=== PATIENT | female | born 1950 | race Caucasian/White ===

== ENCOUNTER 2023-11-27 10:50 | Outpatient (AMB) | payer MEDICARE, SELFPAY ==
--- NOTE | 2023-11-27 10:51 | A.OFFVIS_ITS ---
Vital Signs 3 11/27/23 10:58 Height 5 ft 4 in Weight 200 lb BMI 34.3 BP 133/62 Blood Pressure Location Rt brachial Position Sitting Intake Visit Reasons: Back pain Intake Note: Left Hip Pain Allergies morphine Adverse Reaction (Severe, Uncoded 11/27/23 10:55) Itching HPI Comments Details: Beverly is a very pleasant 72-year-old female who presents the office today for evaluation management of her left lower back pain Patient has been suffering with this pain for greater than 1 year. She is currently finishing PT which she reports has not improved her pain, at times will exacerbate her pain. Pain today is rated as a 3/10, constant and worse in the morning and during the day. Pain over left PSIS with occasional radiation to the groin and down the the buttocks Exacerbated by walking, standing, going downstairs and rising from a seated position Patient will take Tylenol and Motrin as needed for the pain. Some relief with heat pad but ultimately pain persists. Denies radiation of the pain down the lower extremity. Denies numbness, tingling, burning, stabbing or electrical pain down the leg Denies red flag symptoms including new loss of bowel, bladder or saddle anesthesia. In terms of muscle damage condition is described as dull, throbbing. Pain is negatively impacting patient's general activity, recreational activities, sleep and walking. Denies current use of anticoagulants Denies current use of alcohol, nicotine, tobacco or illicit substances Denies implantable devices, pacemaker defibrillator [facility] Medical History (Updated 11/27/23 @ 11:59 by Rona Mireles APRN, PROGRAM MANAGEMENT PROFESSIONAL) Migraine Enteropathic arthritis GERD (gastroesophageal reflux disease) Hypertension Diabetes mellitus type 2, noninsulin dependent Colon polyps Colitis Social History (Updated 11/27/23 @ 10:57 by Serenity Spicer Hiro) Patient Tobacco Use Status: Never used Tobacco Review of Systems Const All systems reviewed & are unremarkable except as noted in HPI and below Physical Exam Vital Signs: Last Vital Signs BP 133/62 11/27/23 10:58 BMI result Body Mass Index 34.3 General: awake, alert, oriented. Answers questions appropriately. Fully engaged in examination. Skin: warm, dry, intact HEENT: Normocephalic. Hearing intact. Cardiac: External chest normal in appearance. Respiratory: No cough, audible wheezing or stridor. Abdomen: without gross distension. MS: No obvious swelling or deformities. Able to stand on bilateral tiptoes and bilateral heels.? Able to transition from sit to stand unassisted. Ambulates with bilaterally normal heel strike and toe off Tenderness to palpation over left PSIS Gaenslen positive on the left Thigh thrust positive on the left SI compression positive on the left DANIEL positive on the left SLR negative bilaterally Neurological: Oriented to person, place, time and situation. Thought process intact. No gait abnormalities appreciated. Psychiatric: Appropriate mood and affect. Good judgment and insight. Results Reviewed Results Reviewed: Assessment & Plan Assessment & Plan (1) Sacroiliac joint dysfunction of left side: Code(s): M53.3 - Sacrococcygeal disorders, not elsewhere classified Category: Medical Plan Beverly is a very pleasant 72 year old female who presented to the office today for evaluation and management of her chronic lower back pain. History, physical exam and provocative testing consistent with left sacroiliac joint dysfunction. Patient has exhausted conservative therapy including PT, home exercise program, ltpw-psj-wnkslbz medications, nonsteroidal anti-inflammatory medications and heat all without improvement of her symptoms. SI belt given to patient today with instructions for use. Lengthy discussion with patient regarding diagnosis and treatment options. Will schedule for fluoroscopy guided left diagnostic sacroiliac joint injection with local anesthetic. All questions and concerns were answered, patient agrees with the plan. Follow-up after injection, sooner if needed Coding Level of Care Code New Pt Level 4 (25979) Diagnoses Sacroiliac joint dysfunction of left side M53.3
[2023-11-27 10:58] VITALS: BP 133/62; BMI 34.3
== END 2023-11-27 11:46 | disposition home or self-care (01) ==
PROVIDERS: PCP Internal Medicine; Referring Provider Internal Medicine; Visit Provider Registered Nurse Emergency
DX: M53.3 Sacrococcygeal disorders, not elsewhere classified (principal)
CPT/HCPCS: 99204

== ENCOUNTER → 2023-11-27 10:50 | Outpatient (BNVA) | payer MEDICARE, SELFPAY | PROVIDERS: PCP Internal Medicine; Referring Provider Internal Medicine; Visit Provider Registered Nurse Emergency | DX: M53.3 Sacrococcygeal disorders, not elsewhere classified (principal) | CPT/HCPCS: 99202 ==

== ENCOUNTER 2024-01-05 07:19 | Outpatient (REF) | payer MEDICARE, SELFPAY ==
--- NOTE | ~2024-01-05 | FL_ITS ---
EXAMINATION: XR FLUOROSCOPY WITH IMAGES CLINICAL INFORMATION: Sacrococcygeal disorders, not elsewhere classified. Left SI joint injection. COMPARISON: None available. TECHNIQUE: Fluoroscopy provided to: Dr. Lane Fluoroscopy time: 0.0 minutes DAP: 0.0176 mGycm2 Images: 1 FINDINGS: Solitary PA image left SI joint shows needle within the superior synovial SI joint, with subsequent contrast injection. FL/FL guidance in treatment room IMPRESSION: Fluoroscopic guidance. Please refer to the full operative report for details. Electronically signed by: Pedro Caro MD 03/03/2024 09:01 AM EDT
== END 2024-01-05 07:20 | disposition home or self-care (01) ==
LOC: CF 07:19
PROVIDERS: Visit Provider Anesthesiology
DX: M53.3 Sacrococcygeal disorders, not elsewhere classified (principal); Z53.8 Procedure and treatment not carried out for other reasons
CPT/HCPCS: J2795; Q9967

== ENCOUNTER 2024-01-08 10:56 | Outpatient (AMB) | payer MEDICARE, SELFPAY ==
--- NOTE | 2024-01-08 11:08 | A.OFFVIS_ITS ---
Vital Signs 3 01/08/24 11:12 Height 5 ft 4 in BMI Reason not done Patient refused/unable BP 131/60 Blood Pressure Location Lt brachial Position Sitting Pulse 79 Pulse Source Pulse Oximeter Pulse Oximetry (%) 98 Oxygen Delivery Method Room Air Intake Visit Reasons: L diagnostic SIJ injection Intake Note: Pain today .10/15 Master Black Belt Required: No Accompanied by: Spouse Allergies morphine Allergy (Unknown, Verified 01/08/24 11:11) Itching HPI Comments Details: Patient presents back to the office today for follow-up, 2 days status post diagnostic left sacroiliac joint injection Endorses 95% pain relief with improvement in functional mobility since the injection. Denies any untoward effects. Would like to proceed with therapeutic injection Leaving for vacation in [facility] in February, is hoping to get this scheduled before the trip. Prior: Beverly is a very pleasant 72-year-old female who presents the office today for evaluation management of her left lower back pain Patient has been suffering with this pain for greater than 1 year. She is currently finishing PT which she reports has not improved her pain, at times will exacerbate her pain. Pain today is rated as a 3/10, constant and worse in the morning and during the day. Pain over left PSIS with occasional radiation to the groin and down the the buttocks Exacerbated by walking, standing, going downstairs and rising from a seated position Patient will take Tylenol and Motrin as needed for the pain. Some relief with heat pad but ultimately pain persists. Denies radiation of the pain down the lower extremity. Denies numbness, tingling, burning, stabbing or electrical pain down the leg Denies red flag symptoms including new loss of bowel, bladder or saddle anesthesia. In terms of muscle damage condition is described as dull, throbbing. Pain is negatively impacting patient's general activity, recreational activities, sleep and walking. Denies current use of anticoagulants Denies current use of alcohol, nicotine, tobacco or illicit substances Denies implantable devices, pacemaker defibrillator [facility] Medical History (Updated 11/27/23 @ 11:59 by Rona Mireles APRN, VICE PRESIDENT RESIDENTIAL [employer] SALES) Migraine Enteropathic arthritis GERD (gastroesophageal reflux disease) Hypertension Diabetes mellitus type 2, noninsulin dependent Colon polyps Colitis Social History (Updated 11/27/23 @ 10:57 by Serenity Spicer Hiro) Patient Tobacco Use Status: Never used Tobacco Review of Systems Const All systems reviewed & are unremarkable except as noted in HPI and below Physical Exam Vital Signs: Last Vital Signs Pulse 79 01/08/24 11:12 BP 131/60 01/08/24 11:12 Pulse Ox 98 01/08/24 11:12 Oxygen Delivery Method Room Air 01/08/24 11:12 General: awake, alert, oriented. Answers questions appropriately. Fully engaged in examination. Skin: warm, dry, intact HEENT: Normocephalic. Hearing intact. Cardiac: External chest normal in appearance. Respiratory: No cough, audible wheezing or stridor. Abdomen: without gross distension. MS: No obvious swelling or deformities. Neurological: Oriented to person, place, time and situation. Thought process intact. No gait abnormalities appreciated. Psychiatric: Appropriate mood and affect. Good judgment and insight. Results Reviewed Results Reviewed: Assessment & Plan Assessment & Plan (1) Sacroiliac joint dysfunction of left side: Code(s): M53.3 - Sacrococcygeal disorders, not elsewhere classified Category: Medical Plan Jeb presents back to the office today for follow-up, 2 days status post left diagnostic sacroiliac joint injection Endorses 95% pain relief with improvement in functional mobility since the injection. Discussed options for treatment, she would like to proceed with fluoroscopy guided left therapeutic sacroiliac joint injection with local anesthetic. Patient has exhausted conservative therapy including PT, home exercise program, znor-oda-pjsnksx medications, nonsteroidal anti-inflammatory medications and heat all without improvement of her symptoms. Continue with SI belt as needed All questions and concerns were answered, patient agrees with the plan. Follow-up after injection, sooner if needed Coding Level of Care Code Est Pt Level 3 (27280) Diagnoses Sacroiliac joint dysfunction of left side M53.3
[2024-01-08 11:12] VITALS: BP 131/60; PULSE 79; O2SAT 98
== END 2024-01-08 11:46 | disposition home or self-care (01) ==
PROVIDERS: PCP Internal Medicine; Visit Provider Registered Nurse Emergency
DX: M53.3 Sacrococcygeal disorders, not elsewhere classified (principal)
CPT/HCPCS: 99213

== ENCOUNTER → 2024-01-08 10:56 | Outpatient (BNVA) | payer MEDICARE, SELFPAY | PROVIDERS: PCP Internal Medicine; Visit Provider Registered Nurse Emergency | DX: M53.3 Sacrococcygeal disorders, not elsewhere classified (principal) | CPT/HCPCS: 99212 ==

== ENCOUNTER 2024-03-22 06:18 | Outpatient (REF) | payer MEDICARE, SELFPAY | END 2024-03-22 06:19 | disposition home or self-care (01) | LOC: CF 06:18 | PROVIDERS: Visit Provider Anesthesiology | DX: M53.3 Sacrococcygeal disorders, not elsewhere classified (principal) | CPT/HCPCS: 27096; J2003; J2795; J3301; Q9967 ==

== ENCOUNTER 2024-03-22 09:21 | Outpatient (AMB) | payer MEDICARE, SELFPAY ==
--- NOTE | 2024-03-22 09:42 | A.OFFVIS_ITS ---
Vital Signs 03/22/24 10:28 03/22/24 10:29 Height 5 ft 4 in 5 ft 4 in Weight 200 lb 200 lb BMI 34.3 34.3 BP 117/53 L 127/68 Blood Pressure Location Lt brachial Lt brachial Position Sitting Sitting Respiration 16 16 Pulse 73 75 Pulse Source Pulse Oximeter Pulse Oximeter Pulse Oximetry (%) 96 98 Oxygen Delivery Method Room Air Room Air Comment pre-op post-op Intake Visit Reasons: LEFT THERAPEUTIC SIJ INJECTION Allergies morphine Allergy (Unknown, Verified 03/22/24 10:30) Itching [facility] Medical History (Updated 11/27/23 @ 11:59 by Rona Mireles APRN, KITCHEN BATH DESIGNER) Migraine Enteropathic arthritis GERD (gastroesophageal reflux disease) Hypertension Diabetes mellitus type 2, noninsulin dependent Colon polyps Colitis Social History (Updated 11/27/23 @ 10:57 by Serenity Spicer [facility]) Patient Tobacco Use Status: Never used Tobacco Physical Exam Vital Signs: Last Vital Signs Pulse 75 03/22/24 10:29 Resp 16 03/22/24 10:29 BP 127/68 03/22/24 10:29 Pulse Ox 98 03/22/24 10:29 Oxygen Delivery Method Room Air 03/22/24 10:29 BMI result Body Mass Index 34.3 Assessment & Plan Assessment & Plan (1) Sacroiliac joint dysfunction of left side: Code(s): M53.3 - Sacrococcygeal disorders, not elsewhere classified Category: Medical Plan: Left therapeutic sacroiliac joint injection Informed consent was explained thoroughly to the patient.? All questions about benefits and risks for the procedure were answered. Patient came to the operating room and was positioned prone on the operating table with the pillow under the abdomen. The lower back and buttocks of the patient were prepped with ChloraPrep prepped and draped with sterile utility towels.? Sterilely draped C-arm was brought over the operating field and sq picture of patient's pelvis was demonstrated on the screen.? For the left joint tilting C-arm contralateral to the site of the joint the most posterior portion of the joints was superimposed with anterior silhouette of the joint.? Skin was injected in the projection of the joint slightly medial to the location of the joint with 25 gauge 1/2 inch needle using local lidocaine 2% . After that 22 gauge 3 and 1/2 inch needle was driven to the left joint in tunnel vision fashion.? When needle entered the joint capsule injection of the contrast was performed demonstrating intra-articular and minimally periarticular spread of the contrast.? After that 4 cc. of ropivacaine 0.5% mixed with Kenalog 40 mg was injected in the joint. After that needle was removed sterile Band-Aid was applied. The patient tolerated the procedure well. She was taken outside of the operating room to recovery room where she recovered uneventfully. Plan Jeb presents back to the office today for follow-up, 2 days status post left diagnostic sacroiliac joint injection Endorses 95% pain relief with improvement in functional mobility since the injection. Discussed options for treatment, she would like to proceed with fluoroscopy guided left therapeutic sacroiliac joint injection with local anesthetic. Patient has exhausted conservative therapy including PT, home exercise program, esio-syx-gvjqacc medications, nonsteroidal anti-inflammatory medications and heat all without improvement of her symptoms. Continue with SI belt as needed All questions and concerns were answered, patient agrees with the plan. Follow-up after injection, sooner if needed Orders: Orders FL guidance in treatment room Today M53.3 - Sacrococcygeal disorders, not elsewhere classified Coding Level of Care Code Procedure Only Diagnoses Sacroiliac joint dysfunction of left side M53.3
[2024-03-22 10:28] VITALS: BP 117/53; PULSE 73; RESP 16; O2SAT 96; BMI 34.3
[2024-03-22 10:29] VITALS: BP 127/68; PULSE 75; RESP 16; O2SAT 98; BMI 34.3
== END 2024-03-22 10:27 | disposition home or self-care (01) ==
LOC: HO.PMCPRC 09:21
PROVIDERS: PCP Internal Medicine; Visit Provider Anesthesiology
DX: M53.3 Sacrococcygeal disorders, not elsewhere classified (principal)
CPT/HCPCS: 27096

== ENCOUNTER 2024-04-20 11:02 | Outpatient (AMB) | payer MEDICARE, SELFPAY ==
[2024-04-20 11:06] VITALS: BP 150/66; PULSE 82; O2SAT 99; BMI 32.6
--- NOTE | 2024-04-20 11:06 | A.OFFVIS_ITS ---
Vital Signs 3 04/20/24 11:06 Height 5 ft 4 in Weight 190 lb BMI 32.6 BP 150/66 H Blood Pressure Location Lt brachial Position Sitting Pulse 82 Pulse Source Pulse Oximeter Pulse Oximetry (%) 99 Oxygen Delivery Method Room Air Intake Visit Reasons: LEFT THERAPEUTIC SIJ INJECTION Allergies morphine Allergy (Unknown, Verified 04/20/24 11:07) Itching Medication List - Last Reconciled 04/20/24 by Samra Davalos folic acid 1 mg PO DAILY mesalamine 800 mg PO TID metformin ER 500 mg PO DAILY methotrexate sodium mg PO metoprolol succinate ER 100 mg PO DAILY mirabegron ER (Myrbetriq) 50 mg PO DAILY omeprazole 20 mg PO DAILY triamterene-hydrochlorothiazid 37.5-25 mg 1 tab PO DAILY HPI Comments Details: Patient presents back to the office today for follow-up, 1 month status post left therapeutic sacroiliac joint injection She reports greater than 90% pain relief with improvement in functional mobility since the injection Denies any untoward effects. Reports improvement in the referred pain and is able to go on longer walks and do more activity without pain increase Prior: Patient presents back to the office today for follow-up, 2 days status post diagnostic left sacroiliac joint injection Endorses 95% pain relief with improvement in functional mobility since the injection. Denies any untoward effects. Would like to proceed with therapeutic injection Leaving for vacation in [place] in February, is hoping to get this scheduled before the trip. Prior: Beverly is a very pleasant 72-year-old female who presents the office today for evaluation management of her left lower back pain Patient has been suffering with this pain for greater than 1 year. She is currently finishing PT which she reports has not improved her pain, at times will exacerbate her pain. Pain today is rated as a 3/10, constant and worse in the morning and during the day. Pain over left PSIS with occasional radiation to the groin and down the the buttocks Exacerbated by walking, standing, going downstairs and rising from a seated position Patient will take Tylenol and Motrin as needed for the pain. Some relief with heat pad but ultimately pain persists. Denies radiation of the pain down the lower extremity. Denies numbness, tingling, burning, stabbing or electrical pain down the leg Denies red flag symptoms including new loss of bowel, bladder or saddle anesthesia. In terms of muscle damage condition is described as dull, throbbing. Pain is negatively impacting patient's general activity, recreational activities, sleep and walking. Denies current use of anticoagulants Denies current use of alcohol, nicotine, tobacco or illicit substances Denies implantable devices, pacemaker defibrillator [facility] Medical History (Updated 11/27/23 @ 11:59 by Rona Mireles APRN, CLINICAL REVIEW SPECIALIST) Migraine Enteropathic arthritis GERD (gastroesophageal reflux disease) Hypertension Diabetes mellitus type 2, noninsulin dependent Colon polyps Colitis Social History (Updated 11/27/23 @ 10:57 by Serenity Spicer Hiro) Patient Tobacco Use Status: Never used Tobacco Review of Systems Const All systems reviewed & are unremarkable except as noted in HPI and below Physical Exam Vital Signs: Last Vital Signs Pulse 82 04/20/24 11:06 BP 150/66 H 04/20/24 11:06 Pulse Ox 99 04/20/24 11:06 Oxygen Delivery Method Room Air 04/20/24 11:06 BMI result Body Mass Index 32.6 General: awake, alert, oriented. Answers questions appropriately. Fully engaged in examination. Skin: warm, dry, intact HEENT: Normocephalic. Hearing intact. Cardiac: External chest normal in appearance. Respiratory: No cough, audible wheezing or stridor. Abdomen: without gross distension. MS: No obvious swelling or deformities. Neurological: Oriented to person, place, time and situation. Thought process intact. No gait abnormalities appreciated. Psychiatric: Appropriate mood and affect. Good judgment and insight. Results Reviewed Results Reviewed: Assessment & Plan Assessment & Plan (1) Sacroiliac joint dysfunction of left side: Code(s): M53.3 - Sacrococcygeal disorders, not elsewhere classified Category: Medical Plan Patient presents back to the office today for follow-up, 1 month status post left therapeutic sacroiliac joint injection Reports greater than 90% pain relief with improvement in function and mobility since the injection. Patient has exhausted conservative therapy including PT, home exercise program, ffpf-tqw-evygvyy medications, nonsteroidal anti-inflammatory medications and heat all without improvement of her symptoms. Continue with SI belt as needed All questions and concerns were answered, patient agrees with the plan. Follow- up when pain returns, sooner if needed Coding Level of Care Code Est Pt Level 3 (40478) Complex EM visit Add On G2211 Diagnoses Sacroiliac joint dysfunction of left side M53.3
== END 2024-04-20 11:35 | disposition home or self-care (01) ==
PROVIDERS: PCP Internal Medicine; Visit Provider Registered Nurse Emergency
DX: M53.3 Sacrococcygeal disorders, not elsewhere classified (principal)
CPT/HCPCS: 99213; G2211

== ENCOUNTER → 2024-04-20 11:02 | Outpatient (BNVA) | payer MEDICARE, SELFPAY | PROVIDERS: PCP Internal Medicine; Visit Provider Registered Nurse Emergency | DX: M53.3 Sacrococcygeal disorders, not elsewhere classified (principal) | CPT/HCPCS: 99212 ==

== ENCOUNTER 2024-12-21 13:11 | Outpatient (AMB) | payer MEDICARE, SELFPAY ==
--- NOTE | 2024-12-21 13:14 | A.OFFVIS_ITS ---
Vital Signs 3 12/21/24 13:15 Height 5 ft 4 in Weight 174 lb BMI 29.9 BP 124/60 Blood Pressure Location Rt brachial Position Sitting Respiration 16 Pulse 76 Pulse Source Pulse Oximeter Pulse Oximetry (%) 93 Oxygen Delivery Method Room Air Intake Visit Reasons: Follow Up/Discuss Inj. Client Program Manager Required: No Accompanied by: Self / Same As Patient Allergies morphine Allergy (Unknown, Verified 12/21/24 13:17) Itching HPI Comments Details: The patient is a 74-year-old female presenting with recurrence of left sacroiliac joint pain. The pain was initially managed with a left sacroiliac joint injection performed in March 2024, which provided relief for approximately nine months. The pain has gradually returned over the past month, with a current intensity of 3/10. The pain is localized to the left sacroiliac joint and radiates down into the thigh, without involvement of the groin. The patient has been managing the pain with irwe-buz-vgzmmjj medications such as ibuprofen and Tylenol, although she tries to minimize their use. Physical activities such as gardening and stretching can exacerbate the pain, while rest provides some relief. - Onset: Pain recurred approximately one month ago after nine months of relief. - Quality: Described as a 3/10 in intensity. - Location: Localized to the left sacroiliac joint, radiating into the thigh. - Exacerbating factors: Gardening, stretching, and physical activity. - Relieving factors: Rest and minimizing physical activity. - Affect: Pain impacts physical activities such as gardening. - Analgesia: Current pain level is 3/10, managed with ibuprofen and Tylenol. - Adverse Effects: None reported from current medications. - Activities of Daily Living: Pain interferes with gardening and stretching activities. - Aberrant Drug Related Behaviors: None reported. [facility] Medical History (Updated 11/27/23 @ 11:59 by Rona Mireles APRN, MANAGER LINE) Migraine Enteropathic arthritis GERD (gastroesophageal reflux disease) Hypertension Diabetes mellitus type 2, noninsulin dependent Colon polyps Colitis Social History (Updated 11/27/23 @ 10:57 by Serenity Spicer Hiro) Patient Tobacco Use Status: Never used Tobacco Review of Systems Const Details: - Musculoskeletal: Reports left sacroiliac joint pain radiating to the thigh. Denies groin pain. Physical Exam Vital Signs: Last Vital Signs Pulse 76 12/21/24 13:15 Resp 16 12/21/24 13:15 BP 124/60 12/21/24 13:15 Pulse Ox 93 12/21/24 13:15 Oxygen Delivery Method Room Air 12/21/24 13:15 BMI result Body Mass Index 29.9 General: awake, alert, oriented. Answers questions appropriately. Fully engaged in examination. Skin: warm, dry, intact HEENT: Normocephalic. Hearing intact. Cardiac: External chest normal in appearance. Respiratory: No cough, audible wheezing or stridor. Abdomen: without gross distension. MS: No obvious swelling or deformities. Able to stand on bilateral tiptoes and bilateral heels.? Able to transition from sit to stand unassisted. Ambulates with bilaterally normal heel strike and toe off Left SI today: Tenderness to palpation over left PSIS. Gaenslen positive on the left. Thigh thrust positive on the left. SI compression positive on the left SLR negative bilaterally Neurological: Oriented to person, place, time and situation. Thought process intact. No gait abnormalities appreciated. Psychiatric: Appropriate mood and affect. Good judgment and insight. Results Reviewed Results Reviewed: Assessment & Plan Assessment & Plan (1) Sacroiliac joint dysfunction of left side: Code(s): M53.3 - Sacrococcygeal disorders, not elsewhere classified Category: Medical Plan The plan is to repeat the left sacroiliac joint injection, as the previous injection provided relief for nine months. The patient will continue using vyfe-whc-btbtloz medications like ibuprofen and Tylenol as needed for pain management. Insurance approval will be sought for the procedure, and once obtained, the patient will be scheduled for the injection. Patient has exhausted conservative therapy including PT, home exercise program, lmce-iqr-qpffzdh medications, nonsteroidal anti-inflammatory medications and heat all without improvement of her symptoms. Continue with SI belt as needed Patient was informed and verbally consented to the use of an ambient scribe for clinic note documentation during this visit. Patient Instructions: - Continue using ibuprofen and Tylenol as needed for pain relief. - Await a call for scheduling the injection once insurance approval is obtained. Coding Level of Care Code Est Pt Level 3 (62257) Complex EM visit Add On G2211 Diagnoses Sacroiliac joint dysfunction of left side M53.3
[2024-12-21 13:15] VITALS: BP 124/60; PULSE 76; RESP 16; O2SAT 93; BMI 29.9
--- OUTSIDE RECORDS SUMMARY | 2024-12-21 14:01 | XMS_ITS | Clinical Summary ---
Author Organization [facility] Address [address] [place] [phone] Phone Care Team Providers [employer] Sales Executive Name Role Phone Suraj Santiago MD Primary Care Provider [phone] Allergies Active Allergy Reactions Criticality Noted Date Comments Morphine Hives 06/17/2012 morphine sulfate face Medications albuterol HFA (PROAIR HFA ; PROVENTIL HFA ; VENTOLIN HFA) 90 mcg/actuation inhaler Inhale 2 puffs by mouth every 6 hours as needed. Active atorvastatin (LIPITOR) 10 mg tablet Take 1 tablet (10 mg total) by mouth at bedtime. Active erythromycin 5 mg/gram (0.5 %) ophthalmic ointment APPLY 1 A SMALL AMOUNT INTO BOTH EYES THREE TIMES A DAY DIRECTED 5 Active folic acid (FOLVITE) 1 mg tablet TAKE 1 TABLET BY MOUTH DAILY. EXCEPT THE DAY YOU TAKE YOUR METHOTREXATE 5 Active mesalamine (ASACOL HD) [address] tablet Take 3 tablets (2,400 mg total) by mouth 1 (one) time each day. 3 Active methotrexate 2.5 mg tablet TAKE 8 TABLETS (20 MG TOTAL) BY MOUTH ONCE A WEEK. 5 Active metoprolol succinate (TOPROL-XL) 100 mg 24 hr tablet Take 1 tablet (100 mg total) by mouth 1 (one) time each day. Active metroNIDAZOLE (METROGEL) 1 % gel Apply topically 2 times daily. 4 Active omeprazole (PriLOSEC) [address] capsule Take by mouth daily. 2 Active Ozempic 1 mg/dose (4 mg/3 mL) injection pen INJECT 1 MG SUBCUTANEOUSLY ONCE A WEEK Active triamterene-hy droCHLOROthiaz dee (MAXZIDE-25) 37.5-25 mg per tablet Take 1 tablet by mouth 1 (one) time each day. 2 Active Gemtesa 75 mg tablet tablet 5 Active estradioL (ESTRACE) 0.01 % (0.1 mg/gram) vaginal cream Insert 0.5 g into the vagina 1 (one) time each day. Please place 0.5g (a pea-sized amount) on your finger and place inside the vagina for 2 weeks at night, and then twice a week at night 42.5 g 3 5 Active Encounters Date Type Department Care Team Description 11/29/2024 11:00 AM EDT Office Visit Urogynecology [address] [phone] Shannon Reeves MD Prolapse of anterior vaginal wall (Primary Dx); Nocturia; Urgency incontinence; Prolapse of posterior vaginal wall from Last 3 Months Surgical History Surgery Date Site/Laterality Comments LAPAROSCOPIC HYSTERECTOMY 06/08/2009 - 06/07/2010 SUPRACERVICAL TUBAL LIGATION 06/08/1980 - 06/07/1981 BLADDER SUSPENSION 06/08/1996 - 06/07/1997 Dr. Alejandro Medical History Medical History Date Comments Diabetes ([facility] V24, [facility] V28) Hypertension Hyperlipidemia Enteropathic arthritis Rheumatoid arthritis ([facility] V24, [facility] V28) Family History Medical History Relation Name Comments Kidney cancer Father Breast cancer Neg Hx Colon cancer Neg Hx Ovarian cancer Neg Hx Uterine cancer Neg Hx Relation Name Status Comments Father Social History Tobacco Use Types Packs/Day Years Used Date Smoking Tobacco: Never Smokeless Tobacco: Never Tobacco Cessation:Counseling Given: Not Answered Alcohol Use Standard Drinks/Week Comments Not Currently 0 (1 standard drink = 0.6 oz pur e alcohol) Comments Unknown Sex and Gender Information Value Date Recorded Sex Assigned at Not on file Legal Sex Female 7:37 PM EST Gender Identity Not on file Sexual Orientation Not on file Obstetrics History Para Term AB IAB SAB Ectopic Multiple Livin g Live Births 4 4 4 0 0 0 0 0 0 4 4 Date Outcome GA Total Labor Labor/2nd/3rd Weight Sex Type Anes PTL Mahsa A1 A5 Name Clin Term Term Term Term Last Filed Vital Signs Vital Sign Reading Time Taken Comments Blood Pressure 122/65 11/29/2024 10:47 AM EDT Pulse 79 11/29/2024 10:47 AM EDT Temperature - - Respiratory Rate - - Oxygen Saturation - - Inhaled Oxygen Concentration - - Weight 82.1 kg (181 lb) 11/29/2024 10:47 AM EDT Height 162.6 cm (5' 4 ) 11/29/2024 10:47 AM EDT Body Mass Index 31.07 11/29/2024 10:47 AM EDT Plan of Treatment Health Maintenance Due Date Last Done Comments Diabetes: Annual Foot Exam 1960 Diabetes: Annual Retina Eye Exam 1960 DTaP,Tdap,and Td Vaccines (1 - Tdap) 12/11/1967 Pneumococcal Vaccine: 50+ Years (1 of 1 - PCV) 1998 IPV Vaccines (2 of 3 - Adult catch-up series) 03/23/2000 02/24/2000 Zoster Vaccines (2 of 2) 03/08/2019 01/11/2019 Cholesterol Screening (Lipid Panel) 10/26/2024 Depression Screening 10/26/2024 Falls Risk Assessment 10/26/2024 Hepatitis C Screening 10/26/2024 Osteoporosis Screening (Bone Density Screening) 10/26/2024 Social Influencers of Health Screening 10/26/2024 Diabetes: Annual Urine Albumin-Creatinine Ratio (uACR) 11/29/2024 Diabetes: Blood Sugar Control Test (HGBA1C) 11/29/2024 Influenza Vaccine (#1) 2025 , 03/03/2023, 04/06/2022, Additional history exists COVID-19 Vaccine (10 - Moderna risk season) 2025 08/23/2024, 01/11/2024, 03/03/2023, Additional history exists Diabetes: Annual GFR (Glomerular Filtration Rate) 06/29/2025 06/29/2024, 05/10/2024, 12/21/2023, Additional history exists Hypertension/CHF/CAD Annual BMP Blood Test 06/29/2025 06/29/2024, 05/10/2024, 12/21/2023, Additional history exists Hepatitis A Vaccines Aged Out 09/16/2000, 02/24/20 00 No longer eligible based on patient's age to complete this topic Meningococcal ACWY Vaccine Aged Out 10/13/2005, No longer eligible based on patient's age to complete this topic RSV Immunization Adult Patients Completed 05/07/2024 HIB Vaccines Aged Out No longer eligi ble based on patient's age to complete this topic HPV Vaccines Aged Out No longer eligi ble based on patient's age to complete this topic Hepatitis B Vaccines Aged Out No long er eligible based on patient's age to complete this topic MMR Vaccines Aged Out No longer eligi ble based on patient's age to complete this topic Meningococcal B Vaccine Aged Out No l onger eligible based on patient's age to complete this topic RSV Immunization Patients Under 20 months Aged Out No longer eligible based on patient's age to complete this topic Varicella Vaccines Aged Out No longer eligible based on patient's age to complete this topic Procedures Procedure Name Priority Date/Time Associated Diagnosis Comments POC URINE AUTO W/O MICRO Routine 11/29/2024 11:47 AM EDT Nocturia from Last 3 Months Results * POC Urine Auto W/O Micro (11/29/2024 11:47 AM EDT) Glucose UA POC Negative Negative, Trace mg/dL Bilirubin UA POC Negative Negative Ketones UA POC Negative Negative Specific [place] UA POC 1.020 Blood UA POC Negative Negative PH UA POC 6.0 Protein UA POC Negative Negative mg/dL Urobilinogen UA POC 0.2 E.U./dL 0.2 E.U./dL, 1.0 E.U./dL, 8 , Unable to interpret due to interfering substances mg/dL Nitrite UA POC Negative Negative Leukocytes UA POC Negative Negative Urine Urine specimen obtained by clean catch procedure / Unknown 11/29/2024 11:47 AM EDT Shannon Reeves MD POINT OF CARE TEST ENTER/EDIT OR DERABLES Final Result from Last 3 Months Insurance [facility] [address] [place] [address] Care Teams Solutions Sales Executive Relationship Specialty Start Date End Date Suraj Santiago MD [facility] [address] [place] [address] PCP - General Internal Medicine 06/26/14
--- OUTSIDE RECORDS SUMMARY | 2024-12-21 14:01 | XMS_ITS | Data Portability ---
Author Organization [place] [facility], Allergy Address [address] [place] [address] [place] [phone] Care Team Providers Care Licensed Physical Therapist Name Role Phone CHERYL EID Primary Care Provider [phone] Assessment Encounter Date Assessment Date Assessment LastModified by Organization Details LastModified Time 05/25/2024 05/25/2024 Patient with history of fungal sinusitis and environmental allergy presents with recurrent bouts of right sided facial pain and pressure. Some of these episodes were improved with Augmentin. She does feel that some of the headaches were related to migraine. Nasal endoscopy shows no evidence of polypoid disease or fungal debris. CT no significant disease. Lean towards URIs and migraines as cause of symptoms [email or web address] Not available 05/25/2024 09:38:36 Plan of Treatment Reminders Order Date Submit Date Provider Last Modified By Organization Details Last Modified Time Details Appointments Establi shed 15 2024 02:15P M ROWAN LITTLE PA-C Not available Not available Not available Lab None recorde d. Referral None recorde d. Procedures None recorde d. Surgeries None recorde d. Imaging CT, sinuses , w/o contras t 2023 024 [email or web address] [facility], [address] [place] [address], [phone], 05/25/2024 09:41:13 Medication Orders fluocin olone 0.01 % topical solutio n [address] [facility][id number], [phone] [place], [address], 11/25/2023 09:12:48 Patient TargetsNo targets recorded. Patient InstructionsNo instructions recorded. Reason for Referral None Reported. Results Created Date Observation Date Name Description Value Unit Range Abnormal Flag Note LastModifiedBy Organization Detail LastModifiedTime 01/28/20 24 08/01/2022 imagi ng/di agnos tic resul t No observ ation record ed. [email or web address] Not Available 18:29:19 01/28/20 24 10/21/2022 imagi ng/di agnos tic resul t No observ ation record ed. [email or web address] Not Available 18:29:25 01/28/20 24 11/21/2021 imagi ng/di agnos tic resul t No observ ation record ed. [email or web address] Not Available 18:29:33 01/28/2012/30/2022 imagi ng/di agnos tic resul t No observ ation record ed. [email or web address] Not Available 18:29:45 05/25/20 CT, sinus es, w/o contr ast No observ ation record ed. [facility] [place] [facility] [address], [address], 05/25/2024 09:37:26 05/29/20 24 05/25/2024 CT, sinus es, w/o contr ast No observ ation record ed. [facility] [place] [facility] [address], [address], 05/30/2024 09:51:04 Result Notes None recorded. 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, unspecifi ed; Note: Date Diagnosed : 08/01/2022 2:02 PM (M35.9) Not Available [facility] 4 03:01:33 Mycosis 0315581 Active 2022 Other specified mycoses; Note: Date Diagnosed : 10/20/2022 10:44 AM (B48.8) Not Available [facility] 4 03:01:33 Follow-up visit Active 2022 Medical surveilla nce following completed treatment ; Note: Date Diagnosed : 12/26/2022 3:08 PM (Z09) Not Available [facility] 4 03:01:34 Postopera tive visit 704107958 Active 2022 Post Op Visit; Note: Date Diagnosed : 12/26/2022 3:07 PM (V67.0) Not Available [facility] 4 03:01:33 Chronic maxillary sinusitis 50708757 Active 2022 Chronic maxillary sinusitis ; Note: Date Diagnosed : 08/01/2022 2:02 PM (J32.0) Not Available [facility] 4 03:01:32 Migraine 65863856 Active 2022 Other migraine, not intractab le, without status migrainos us; Note: Date Diagnosed : 04/08/2023 1:59 PM (G43.809) Note: Date Diagnosed : 04/08/2023 1:59 PM (G43.809) Not Available [facility] 4 01:17:37 Chronic sinusitis 68844588 Active 2023 MARIKA ARBOLEDA MD [address] [place] [address],[place] [address], [phone] , [facility] - [facility] 4 21:22:36 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 Procedures Surgical History Date Name Laterality Status Provider Name and Address Organization Details Recorded Time 4 JMSNasal/Sinus Endoscopy-PRIOR surgical cavities completed MARIKA CHEN MD [facility] [place],[facility] [address] [place] [address], [phone], [place] [facility] 05/25/2024 09:07:26 4 JMSNasal/Sinus Endoscopy-PRIOR surgical cavities completed MARIKA CHEN MD [facility] [place],[facility] [address] [place] [address], [phone], [place] [facility] 11/25/2023 09:11:33 3 functional endoscopic sinus surgery completed MARIKA CHEN MD [facility] [place],[address], [phone], [place] [facility] 11/24/2023 21:19:46 functional endoscopic sinus surgery completed MARIKA CHEN MD [facility] [place],[address], [phone], [place] [facility] 11/24/2023 21:18:38 Imaging Results None recorded. Procedure Notes None recorded. Medical Equipment None Reported. Allergies Allergen ID Allergen Name Allergen Category Reaction Reaction Severity Criticality Documentation Date Start Date Code Code System Note Provider Name and Address Organization Details Recorded Time 751286 morphine medicatio n other Not available Not available 10/20/2023 7052 RxNorm React ion: Unkno wn; Not Available [facility] 4 01:14:40 Medications Name Sig Start Date Stop Date Status Note LastModified by Organization Details LastModified Time amoxicill in 500 mg capsule TAKE 1 CAPSULE BY MOUTH 3 TIMES A DAY UNTIL GONE active Not Available Not Available No t Available atorvasta tin 80 mg tablet 04/08 completed Medicati on ID: [id number] B rand Name: atorvast atin Sen d Method: E-Prescr ibed Sub s Allowed: subs OK Medic ationGen ericName : atorvast atin Not Available Not Available Not Available clindamyc in HCl 300 mg capsule TAKE 1 CAPSULE BY MOUTH EVERY 8 HOURS UNTIL FINISHED active Not Available Not Available No t Available atorvasta tin 10 mg tablet TAKE 1 TABLET BY MOUTH EVERYDAY AT BEDTIME active Not Available Not Available No t Available azithromy thierry 250 mg tablet TAKE 2 TABLETS BY MOUTH TODAY, THEN TAKE 1 TABLET DAILY FOR 4 DAYS DIRECTED 05/25 completed Not Available Not Available Not Available atovaquon e 250 mg-progua nil 100 mg tablet TAKE 1 TABLET BY MOUTH EVERY DAY 05/25 completed Not Available Not Available Not Available metoprolo l succinate ER 100 mg tablet,ex tended release 24 hr TAKE 1 TABLET BY MOUTH EVERY DAY active Not Available Not Available No t Available methotrex ate sodium 2.5 mg tablet TAKE 8 TABLETS (20 MG TOTAL) BY MOUTH ONCE A WEEK. active Not Available Not Available No t Available erythromy thierry 5 mg/gram (0.5 %) eye ointment APPLY 1 A SMALL AMOUNT INTO BOTH EYES THREE TIMES A DAY DIRECTED active Not Available Not Available No t Available triamtere ne 37.5 mg-hydroc hlorothia zide 25 mg tablet TAKE 1 TABLET BY MOUTH EVERY DAY active Not Available Not Available No t Available omeprazol e 20 mg capsule,d elayed release TAKE 1 CAPSULE BY MOUTH EVERY DAY active Not Available Not Available No t Available budesonid e 0.5 mg/2 mL suspensio n for nebulizat ion 2022 active Medicati on ID: [id number] D uration Value: 30 Prescri bed By Name: Bobo Orta nd Name: toby Jorge Method: E-Prescr ibed Sub s Allowed: subs OK Speci al Instruct ion: use one vial in Neilmed rinse twice daily. 1/2 bottle per nostril. Medicat ionGener icName: toby barbosa Not Available Not Available Not Available folic acid 1 mg tablet TAKE 1 TABLET BY MOUTH DAILY. EXCEPT THE DAY YOU TAKE YOUR METHOTRE XATE active Not Available Not Available No t Available fluocinol one 0.01 % topical solution APPLY TO THE AFFECTED AREA(S) BY TOPICAL ROUTE 2 TIMES PER WEEK NEEDED active Not Available Not Available No t Available metformin ER 500 mg tablet,ex tended release 24 hr TAKE 1 TABLET BY MOUTH EVERY DAY WITH EVENING MEAL 01/20 completed Not Available Not Available Not Available amoxicill in 875 mg-potass ium clavulana te 125 mg tablet TAKE 1 TABLET BY MOUTH TWICE A DAY 05/25 completed Not Available Not Available Not Available amoxicill in 500 mg-potass ium clavulana te 125 mg tablet TAKE 1 TABLET BY MOUTH EVERY 12 HOURS FOR 7 DAYS 05/25 completed Not Available Not Available Not Available azithromy thierry 500 mg tablet TAKE 1 TABLET BY MOUTH EVERY DAY FOR 3 DAYS 05/25 completed Not Available Not Available Not Available metronida zole 1 % topical gel APPLY TO AFFECTED AREA TWICE A DAY active Not Available Not Available No t Available mesalamin e 1.2 gram tablet,de layed release active Medicati on ID: [id number] B rand Name: mesalami ne Send Method: E-Prescr ibed Sub s Allowed: subs OK Speci al Instruct ion: TAKE 2 TABLETS BY MOUTH DAILY WITH A MEAL Med icationG enericNa me: mesalami ne Not Available Not Available Not Available FreeStyle Lite Strips USE EVERY DAY active Not Available Not Available No t Available mesalamin e 800 mg tablet,de layed release TAKE 3 TABLETS BY MOUTH EVERY DAY active Not Available Not Available No t Available mirabegro n ER 50 mg tablet,ex tended release 24 hr TAKE 1 TABLET BY MOUTH EVERY DAY active Not Available Not Available No t Available Flonase Allergy Relief 50 mcg/actua tion nasal spray,prakash pension 05/21 completed Medicati on ID: [id number] B rand Name: Flonase Allergy Relief S end Method: E-Prescr ibed Sub s Allowed: subs OK Medic ationGen ericName : Flonase Allergy Relief Not Available Not Available Not Available Gemtesa 75 mg tablet 05/25 completed Medicati on ID: [id number] B rand Name: Gemtesa Send Method: E-Prescr ibed Sub s Allowed: subs OK Medic ationGen ericName : Gemtesa Not Available Not Available Not Available Ozempic 1 mg/dose (4 mg/3 mL) subcutane ous pen injector INJECT 1 MG SUBCUTAN EOUSLY ONCE A WEEK active Not Available Not Available No t Available Ozempic 0.25 mg or 0.5 mg (2 mg/3 mL) subcutane ous pen injector INJECT 0.5 MG SUBCUTAN EOUSLY ONCE WEEKLY active Not Available Not Available No t Available Vitals Date Recorded Body height Body mass index (BMI) Body weight Provider Name and Address Organization Details Last Updated DateTime 11/25/2023 162.56 cm 34.3 kg/m2 94177.47 g [facility] 11/25/2023 08:56:52 Date Recorded Body height Body mass index (BMI) Body weight Provider Name and Address Organization Details Last Updated DateTime 05/25/2024 162.56 cm 32.6 kg/m2 07585.55 g [facility] 05/25/2024 08:52:35 Social History None recorded. Functional Status None recorded. Mental Status None recorded. Family History Nothing Reported. Medical History Condition Response Allergies/Hayfever Y Heart Problems N Anxiety N Tonsil Infections N Emphysema N Migraines Y Thyroid Problems N Glaucoma N Depression N COPD N Developmental Delay N Nasal or Sinus Problems Y Anemia N Immune System Disorder N Anesthesia Complications N Heart Attack (MD) N Other Skin Condition N Diabetes Y Rhinitis N Bleeding Disorder N Food Allergy N Arthritis Y Hearing Loss N Hyperlipidemia N Cancer N Stroke N Dementia N Nasal polyps N Asthma Y High Cholesterol Y Sleep Disorder N GERD/Reflux Y Liver Disease N Headaches Y Fibromyalgia N Hypertension Y Speech Delay N Kidney Disease N Gynecological HistoryNo gynecological history recorded. Obstetrics History GPAL:G 0 P 0 0 0 0 Past Encounters Encounter ID Performer Location Encounter Start Date Encounter Closed Date Diagnosis/Indication Diagnosis SNOMED-CT Code Diagnosis ICD10 Code Diagnosis Note [id number] MARIKA ARBOLEDA MD [facility] [address] [address] 11/25/2023 08:52:52 11/25/2023 09:20:29 Chronic sinusitis 70491936 J32.9 No evidence of recurrent fungal sinusitis. Mild crusting along nasal septum bilaterall y. Suggest saline solution as needed. K-Y jelly in the nose as needed as well. Migraine 36697714 G43.90 9 Chronic no n-infective otitis externa of right external auditory canal [id number] 130957 H60.61 Suggested 3 drops distilled vinegar in each ear twice weekly to prevent the buildup of cerumen [id number] MARIKA ARBOLEDA MD [facility] [address] [phone] 05/25/2024 08:44:06 05/25/2024 09:41:13 Migraine 90633321 G43.909 Suspect underlying migraine headache. Suggest reduction of cheese, chocolate, citrus fruit, cold cuts, nuts, MSG and alcohol. Suggest trial of magnesium oxide 2 to 400 mg daily and riboflavin 400 mg daily. Associatio n of migraine disorders website given, [email or web address] for additional informatio n. She will contact me in a few weeks with an update. Consider trial Nurtec if persists Fungal sinusitis 4380707 001 51074 B49 Chronic sinusitis 450728 00 J32.9 No evidence of recurrent fungal sinusitis. Health Concerns Section Related Observation LastModified by Organization Detai ls LastModified Time None Recorded Concern Status LastModified by Organization Details LastModified Time None Recorded Advance Directives Directive None Recorded Payers Insurance Date Sequence Insurance Name Policy Number Policy Dietrich Covered Member ID Dietrich Member ID Guarantor Name 11/20/2024 1 [employer] - MEDICARE ADVANTAGE PLAN (MEDICARE REPLACEMENT HMO) [id number] 4 Toshia Paul Madeline Hall [id number] DomingaMadeline Hall Notes Date Note Type Note Provider Name and Address Organization Details Recorded Time 11/25/2023 text/html hx of chronic sinusitis and fungal disease. Surgery 2002 and December 2022.Presently doing well. Notes itching right ear. No recent steroid irrigations. Occasional saline irrigations. Migraines have been under control. Otherwise she has been well MARIKA CHEN MD [address] [place] [address],[address], [phone], [facility] - [facility] 11/25/2023 09:13:41 05/25/2024 text/html Recent trip to [facility]. Reports recurrent sinus infections manifested by pain but not draiange or fever. Headache all the way to ther vertex on right side. Feels Augmentin is helpful within 48 hrs. Some of the episodes feel like they could be migraine. Hx of allergy no recent steroid irrigations. History of surgery for fungal sinusitis. Was previously placed on metoprolol for migraine prevention MARIKA CHEN MD [address] [place] [address],[address] [place], [address], [facility] - [facility] 05/25/2024 09:39:55 OBGyn Episode No OBEpisode recorded.
== END 2024-12-21 13:29 | disposition home or self-care (01) ==
LOC: HO.PMC 13:12
PROVIDERS: PCP Internal Medicine; Visit Provider Registered Nurse Emergency
DX: M53.3 Sacrococcygeal disorders, not elsewhere classified (principal)
CPT/HCPCS: 99213; G2211

== ENCOUNTER → 2024-12-21 13:11 | Outpatient (BNVA) | payer MEDICARE, SELFPAY | PROVIDERS: PCP Internal Medicine; Visit Provider Registered Nurse Emergency | DX: M53.3 Sacrococcygeal disorders, not elsewhere classified (principal) | CPT/HCPCS: 99212 ==

== ENCOUNTER 2025-01-31 06:15 | Outpatient (REF) | payer MEDICARE, SELFPAY ==
--- OUTSIDE RECORDS SUMMARY | 2025-01-30 23:59 | XMS_ITS | Continuity of Care Document ---
Author Organization [facility] RADIOLOGY A [facility] IMAGING [facility] Address [address] [facility] [address] [place] [address]- Care Team Providers Care Computer Hardware Technician Name Role Phone Gwen Stahl MD Primary Care Physician Encounter 01/23/25 - 01/30/25 [facility] RADIOLOGY AND IMAGING [address], [facility] [address] [place] [address]- Attending Physician: Gwen Stahl MD Admitting Physician: Gwen Stahl MD Referring Physician: Gwen Stahl MD Encounter Type: OutPatient One Time Allergies, Adverse Reactions, Alerts Substance Criticality Severity Reaction Reaction Severity Status morphine extremely itchy Acti ve Immunizations Given and Recorded Vaccine Date Status Refusal Reason Typhoid Vaccine, Inactivated 11/25/07 Given Typhoid Vaccine, Inactivated 10/13/05 Given Typhoid Vaccine, Inactivated 11/08/03 Given Typhoid Vaccine, Inactivated 10/13/01 Given Meningococcal Conjugate Vaccine 1 10/13/05 Given Meningococcal Polysaccharide Vaccine 10/13/01 Give n Hepatitis A Adult Vaccine 09/16/00 Given Hepatitis A Adult Vaccine 02/24/00 Given Yellow Fever Vaccine 02/24/00 Given Poliovirus Vaccine, Inactivated 02/24/00 Given 1Admin Note: menactra Medications albuterol 90 mcg/inh inhalation powder 2 puffs, Inhalation, Every 4 hours, PRN as needed, # 1 each, 0 Refills, Maintenance, 12/11/21 2:06:00PM EDT, Powder, Partial fill upon patient request if the prescription is for a schedule II opioid drug. Start Date: 12/11/21 Status: Ordered Quantity: 1.0 Unit: each Repeat number: 1 Flonase Daily, 0 Refills, Maintenance, 04/29/22 9:27:00 AM EST, Partial fill upon patient request if the prescription is for a schedule II opioid drug. Start Date: 04/29/22 Status: Ordered Repeat number: 1 folic acid 1 mg oral tablet TAKE 1 TABLET BY MOUTH EVERY DAY FOR 90 DAYS Start Date: 10/28/22 Status: Ordered Repeat number: 1 FREESTYLE LITE TEST STRIP USE EVERY DAY Start Date: 04/29/22 Status: Ordered Repeat number: 1 hydrochlorothiazide-triamterene 25 mg-37.5 mg oral tablet 1, tablet, By Mouth, Daily in AM, # 90 tablet, Refills 0, Maintenance, 12/11/21 2:02:00 PM EDT, Tablet, Partial fill upon patient request if the prescription is for a schedule II opioid drug. Start Date: 12/11/21 Status: Ordered Quantity: 90.0 Unit: tablet Repeat number: 1 mesalamine 800 mg oral delayed release tablet TAKE 3 TABLETS BY MOUTH EVERY DAY Start Date: 10/28/22 Status: Ordered Repeat number: 1 MetFORMIN (Eqv-Glucophage XR) 500 mg oral tablet, extended release TAKE 1 TABLET BY MOUTH EVERY DAY WITH EVENING MEAL Start Date: 04/29/22 Status: Ordered Repeat number: 1 methotrexate 2.5 mg oral tablet 1 tablet = 2.5 mg, By Mouth, Every week, # 4 tablet, 0 Refills, Maintenance, 10/28/22 10:31:00 AM EDT, Tablet, Partial fill upon patient request if the prescription is for a schedule II opioid drug. Start Date: 10/28/22 Status: Ordered Quantity: 4.0 Unit: tablet Repeat number: 1 metoprolol 100 mg oral tablet, extended release 100 mg, 1, tablet, By Mouth, Daily in AM, # 30 tablet, Refills 0, Maintenance, 12/11/21 2:03:00 PM EDT, Partial fill upon patient request if the prescription is for a schedule II opioid drug. Start Date: 12/11/21 Status: Ordered Quantity: 30.0 Unit: tablet Repeat number: 1 Myrbetriq 50 mg oral tablet, extended release 1 tablet = 50 mg, By Mouth, Daily, do not crush or chew, # 30 tablet, 0 Refills, Maintenance, 10/28/22 10:31:00 AM EDT, ER Tablet, Partial fill upon patient request if the prescription is for a schedule II opioid drug. Start Date: 10/28/22 Status: Ordered Quantity: 30.0 Unit: tablet Repeat number: 1 omeprazole 20 mg oral delayed release tablet 1 tablet = 20 mg, By Mouth, Daily in AM, 0 Refills, Maintenance, 12/11/21 2:03:00 PM EDT, Partial fill upon patient request if the prescription is for a schedule II opioid drug. Start Date: 12/11/21 Status: Ordered Repeat number: 1 Symbicort 80mcg/4.5mcg Inhaler 2, puffs, Inhalation, 2 times a day, Refills 0, Maintenance, 12/11/21 2:06:00 PM EDT, Aerosol Start Date: 12/11/21 Status: Ordered Repeat number: 1 Problem List Condition Confirmation Course Effective Dates Status H ealth Status Informant Colitis Confirmed Active Hyperlipidemia Confirmed Active Hypertension Confirmed Active Obese class I Confirmed Active Type 2 diabetes mellitus Confirmed Active Results Radiology Reports * Exam Date Time Procedure Performing Provider Status 01/23/25 1:14 PM Lumbar Spine Min 4 Views Auth (Verified) Notes: (Lumbar Spine Min 4 Views) Reason For Exam: pain RESULT: Lumbar Spine Min 4 Views Lumbar Spine Min 4 Views Reason: pain COMPARISON: 09/30/2023 and 01/23/2020 FINDINGS: No bone lesions or fractures. Mild multifocal degenerative disc endplate spurring and disc space narrowing with the exception of moderate narrowing of the L4-L5 disc space. There is a stable grade 1 spondylolisthesis at L4-L5, L4 approximately 7 mm forward relative to L5.There is considerable facet arthropathy at this level which would make it difficult to evaluate forany underlying spondylolysis. Alignment is elsewhere satisfactory. Normal soft tissues. IMPRESSION: Chronic grade 1 spondylolisthesis and disc space narrowing L4-L5 with accompanying facet arthropathy. Milder degenerative changes are present elsewhere. There are no acute findings. WSN: [id number] Ordering Physician: Gwen Stahl Dictated By: Berhane Franklin MD Dictated Date/Time: 01/24/25 1:29 pm Reviewed By: Berhane Franklin MD Signed By: Berhane Franklin MD Signed Date/Time: 01/24/25 1:29 pm Transcribed By: DON Transcribed Date/Time: 01/24/25 1:24 pm * Exam Date Time Procedure Performing Provider Status 01/23/25 1:14 PM XR Hip Comp 2 Views Left Auth (Verified) Notes: (XR Hip Comp 2 Views Left) Reason For Exam: pain RESULT: Hip Comp 2 Views Left Hip Comp 2 Views Left Reason: pain COMPARISON: 04/30/2022 FINDINGS: No fracture or dislocation. No lytic or blastic lesions. Mild narrowing of the left hip joint without arthritic changes. Normal femoral head contour withoutevidence of avascular necrosis. Normal soft tissues. IMPRESSION: Mild joint space narrowing without degenerative or acute findings. WSN: [id number] Ordering Physician: Gwen Stahl Dictated By: Berhane Franklin MD Dictated Date/Time: 01/24/25 1:00 pm Reviewed By: Berhane Franklin MD Signed By: Berhane Franklin MD Signed Date/Time: 01/24/25 1:00 pm Transcribed By: DON Transcribed Date/Time: 01/24/25 12:58 pm * Exam Date Time Procedure Performing Provider Status 01/23/25 1:14 PM Sacroiliac Joints Min 3 Views Auth (Verified) Notes: (Sacroiliac Joints Min 3 Views) Reason For Exam: pain RESULT: Sacroiliac Joints Min 3 Views Sacroiliac Joints Min 3 Views INDICATION / CLINICAL QUESTION: Reason: pain / TECHNIQUE: AP and bilateral oblique views. COMPARISON: 04/30/2022. FINDINGS: There is no fracture.. There is no focal bony lesion. . The sacroiliac joints are of normal width, and are without degenerative change, erosive change, or ankylosis.. IMPRESSION: 1. No bone or joint abnormality seen. WSN: [id number] Ordering Physician: Gwen Stahl Dictated By: Bay Miller MD Dictated Date/Time: 01/23/25 5:49 pm Reviewed By: Bay Miller MD Signed By: Bay Miller MD Signed Date/Time: 01/23/25 5:49 pm Transcribed By: DON Transcribed Date/Time: 01/23/25 5:49 pm Patient Care team information Care Team Personnel Name: Gwen Stahl MD Position: [facility] Outreach Member Role: PCP Address: [address] [place] [id number] Telecom: Care Team Related Persons Name: JESENIA FARIAS Insurance Providers Guarantor name: SHERIDAN FARIAS Health Plan Information #: 1 Payer: [employer] ADV HMO Payer Identifier: NA Member Number: [id number] Group Number: [id number] Subscriber Identifier: [id number] Relationship to Subscriber: self Coverage Type: Medicare HMO Coverage Verification Date: NA Telecom: NA Address:
--- NOTE | ~2025-01-31 | FL_ITS ---
EXAMINATION: XR FLUOROSCOPY WITH IMAGES CLINICAL INFORMATION: SI joint pain management, left COMPARISON: None available. TECHNIQUE: Fluoroscopy provided to: Dr. Lane Fluoroscopy time: 0.1 minutes DAP: 0.0145 mGycm2 Images: 2 FINDINGS: 2 fluoroscopic spot images obtained of the left SI joint during pain management injection. Please refer to the full procedural report for details. FL/FL guidance in treatment room IMPRESSION: Fluoroscopic guidance. Electronically signed by: Pedro Caro MD 01/31/2025 04:07 PM EDT
--- OUTSIDE RECORDS SUMMARY | 2025-01-31 06:17 | XMS_ITS | Clinical Summary ---
Author Organization [facility] Address [address] [place] [phone] Phone Care Team Providers Care Supply Chain Engineer Name Role Phone Suraj Santiago MD Primary Care Provider [phone] Allergies Active Allergy Reactions Criticality Noted Date [...] 11/29/2024 11:00 AM EDT Office Visit Urogynecology [address] [phone] Shannon Reeves MD Prolapse of anterior vaginal wall (Primary Dx); Nocturia; Urgency incontinence; Prolapse of posterior vaginal wall from Last 3 Months Surgical History Surgery Date Site/Laterality Comments LAPAROSCOPIC HYSTERECTOMY 06/08/2009 - 06/07/2010 SUPRACERVICAL TUBAL LIGATION 06/08/1980 - 06/07/1981 BLADDER SUSPENSION 06/08/1996 - 06/07/1997 Dr. Alejandro Medical History Medical History Date Comments [place] [place] [facility] [place] Hypertension Hyperlipidemia Enteropathic arthritis Rheumatoid arthritis [place] [place], [facility] V28) Family History Medical History Relation Name [...] Births 4 4 4 0 0 0 4 4 Date Outcome [...] Zoster Vaccines (2 of 2) 03/08/2019 01/11/2019 Depression Screening 06/08/2024 Cholesterol Screening (Lipid Panel) 10/26/2024 Falls Risk Assessment 10/26/2024 Hepatitis C [...] Negative Ketones UA POC Negative Negative Specific [place] UA POC 1.020 Blood UA POC Negative [...] Final Result from Last 3 Months Insurance [facility] [address]SA [address] [place] [address] Care Teams Supply Chain Engineer Relationship Specialty Start Date End Date Suraj Santiago MD [facility] [address] [place] [address] PCP - General Internal Medicine 06/26/14
--- OUTSIDE RECORDS SUMMARY | 2025-01-31 06:17 | XMS_ITS | Encounter Summary ---
Author Organization [facility] Address [address] [facility] [address] [place] [phone] Phone Care Team Providers Care Web Content Editor Name Role Phone Gwen Stahl MD Primary Care Provider [phone] Encounter Details Date Type Department Care Team (Latest Contact Info) Description 05/10/2024 Transcribe Orders [facility] [address] [facility] 2nd [place] [address] Cirilo Miller MD [address] [facility] [address] [place] [address] [email or web address] Enteropathic arthritis (Primary Dx); Medication monitoring encounter Social History Tobacco Use Types Packs/Day Years Used Date Smoking Tobacco: Former Cigarettes Q uit: 1970 Smokeless Tobacco: Never Alcohol Use Standard Drinks/Week Comments Yes 2 (1 standard drink = 0.6 oz pur e alcohol) month Education Answer Date Recorded Are you interested in more education? Not on day e 10/04/2022 Are you concerned about learning? Not on file 10/04/2022 No 10/04/2022 No 10/04/2022 Digital Access Answer Date Recorded No 10/28/2022 No 10/28/2022 Reliable internet access at home? Not on file 10/28/2022 Device with a working camera? Not on file Intimate Partner Violence Answer Date R ecorded Are you denied basic needs s uch as food, clothing, or medical care? No 03/18/2024 In the past 12 months have y ou been in a relationship with a person who hurts, threatens, or tries to control you? No 03/18/2024 Are you denied basic needs s uch as food, clothing, or medical care? No 03/18/2024 In the past 12 months have y ou been in a relationship with a person who hurts, threatens, or tries to control you? No 03/18/2024 Comments No Sex and Gender Information Value Date Recorded Sex Assigned at Not on file Legal Sex Female 8:03 AM EST Gender Identity Female 12/20/2023 1:34 PM EDT Sexual Orientation Not on file documented as of this encounter Plan of Treatment Not on file documented as of this encounter Results * Sedimentation rate (ESR) (05/10/2024 2:29 PM EST) Pathologist [facility] ESR 8 0 - 30 mm/h [facility] Blood 05/10/2024 2:29 PM EST 05/10/2024 2:32 PM EST Cirilo Miller MD LAB BLOOD ORDERABLES Final Res ult Performing Organization Address City/[facility]/ZIP Co de Phone Number [address] [address] * (ABNORMAL) C-Reactive Protein (05/10/2024 2:29 PM EST) [facility] C REACTIVE PROTEIN 22.2(H) 0.0 - 4.0 mg/L [facility] Blood 05/10/2024 2:29 PM EST 05/10/2024 2:32 PM EST Cirilo Miller MD LAB BLOOD ORDERABLES Final Res ult Performing Organization Address City/[facility]/ZIP Co de Phone Number [address] [address] * (ABNORMAL) Comprehensive metabolic panel (05/10/2024 2:29 PM EST) Pathologist [facility] SODIUM 138 133 - 146 mmol/L [facility] POTASSIUM 3.5 3.3 - 5.1 mmol/L [facility] CHLORIDE 95(L) 96 - 108 mmol/L [facility] CO2 30 21 - 35 mmol/L [facility] BUN 16 6 - 19 mg/dL [facility] CREATININE 0.80 0.5 - 1.5 mg/dL [facility] GLUCOSE 93 70 - 99 mg/dL [facility] ALBUMIN 4.6 3.9 - 4.8 g/dL [facility] TOTAL PROTEIN 7.7 6.5 - 8.0 g/dL [facility] CALCIUM 10.0 8.4 - 10.3 mg/dL [facility] ALKALINE PHOSPHATASE 74 39 - 117 U/L [facility] TOTAL BILIRUBIN 0.4 0.0 - 1.2 mg/dL [facility] AST 28 0 - 37 U/L [facility] ALT 21 0 - 40 U/L [facility] GLOBULIN 3.1 1 - 4.8 g/dL [facility] EGFR 77 >59 mL/min/1.7 3m2 [facility] Comment:Estimated glomerular filtration rate calculated using the CKD-EPI refit equation. ANION GAP 17 10 - 20 mmol/L [facility] Blood 05/10/2024 2:29 PM EST 05/10/2024 2:32 PM EST us Cirilo Miller MD LAB BLOOD ORDERABLES Final Res ult Performing Organization Address City/State/[facility] Co de Phone Number [facility] [address] [place] [address] * CBC (05/10/2024 2:29 PM EST) WBC 8.77 4.00 - 11.00 K/uL [facility] RBC 4.72 4.00 - 5.20 M/uL [facility] HGB 13.5 12.0 - 16.0 g/dL [facility] HCT 42.1 36.0 - 46.0 % [facility] PLT 294 150 - 450 K/uL [facility] MCV 89.2 80.0 - 100.0 fL [facility] MCH 28.6 27.0 - 31.0 pg [facility] MCHC 32.1 32.0 - 36.0 g/dL [facility] RDW 14.5 11.5 - 14.5 % [facility] MPV 9.4 8.4 - 12.0 fL [facility] NRBC 0.00 0.00 /100 WBCs [facility] ABSOLUTE NRBC 0.00 0.00 K/uL [facility] Blood 05/10/2024 2:29 PM EST 05/10/2024 2:32 PM EST us Cirilo Miller MD LAB BLOOD ORDERABLES Final Res ult Performing Organization Address City/State/[facility] Co de Phone Number [facility] [address] [place] [address] documented in this encounter Visit Diagnoses Diagnosis 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 It is not the complete legal health record.[facility]
--- OUTSIDE RECORDS SUMMARY | 2025-01-31 06:17 | XMS_ITS | Encounter Summary ---
Author Organization [facility] Address [address] [address] Phone Care Team Providers Care Pre Planning Advisor Name Role Phone Gwen Stahl MD Primary Care Provider [phone] Encounter Details Date Type Department Care Team (Late st Contact Info) Description 06/06/2022 Procedure Pass [facility] Endoscopy Admitting Dept Virtual Department [address] [place] [phone] Social History Tobacco Use Types Packs/Day Years Used Date Smoking Tobacco: Former Cigarettes Q uit: 1970 Smokeless Tobacco: Never Alcohol Use Standard Drinks/Week Comments Not Currently [...] on file documented as of this encounter Visit Diagnoses Not on filedocumented in this encounter Care Teams Pre Planning Advisor Relationship Specialty Start Date End Date Gwen Stahl MD [address] [place] [id number] [email or web address] PCP - General Internal Medicine 06/05/22 documented as of this encounter Additional Source Comments The information contained in this document represents components of the legal health record. It is not the complete legal health record.[facility]
--- OUTSIDE RECORDS SUMMARY | 2025-01-31 06:17 | XMS_ITS | Clinical Summary ---
Author Organization [facility] Address [address] [address] Phone Care Team Providers Care Surfacing Machine Operator Name Role Phone Gwen Stahl MD Primary Care Provider [phone] [phone] Allergies Active Allergy Reactions Criticality Noted Date Comments Morphine Hives 06/05/2022 face Medications triamterene-hyd roCHLOROthiazid e (MAXZIDE-25) 37.5-25 mg per tablet Take 1 tablet by mouth daily. 2 Active metoprolol succinate (TOPROL-XL) 100 MG 24 hr tablet Take 100 mg by mouth daily. 2 Active omeprazole (PRILOSEC) 20 MG capsule Take by mouth daily. 2 Active albuterol 90 mcg/actuation inhaler Inhale 2 puffs into the lungs every 6 (six) hours as needed for wheezing. Active blood sugar diagnostic (GLUCOSE BLOOD) Strp strips USE EVERY DAY 2 Active mesalamine (ASACOL HD) 800 mg TbEC TAKE 3 TABLETS BY MOUTH EVERY DAY 3 Active metroNIDAZOLE (METROGEL) 1 % gel Apply topically 2 (two) times a day. APPLY TO AFFECTED AREA 4 Active folic acid (FOLVITE) 1 MG tablet Take 1 tablet (1,000 mcg total) by mouth daily. Except the day you take your methotrexate 90 tablet 3 5 Active atorvastatin (LIPITOR) 10 MG tablet Take 10 mg by mouth daily. 5 Active estradioL (ESTRACE) 0.01 % (0.1 mg/gram) vaginal cream Place 0.5 g vaginally. 5 Active GEMTESA 75 mg tablet Take 75 mg by mouth daily. 5 Active methotrexate 2.5 MG Oral tabletIndicatio ns:Enteropathic arthritis Take 8 tablets (20 mg total) by mouth once a week. 96 tablet 5 Active Active Problems Problem Noted Date Diagnosed Date Encounter for methotrexate monitoring 05/23/2024 Assessment & Plan (05/23/2024 3:33 PM EST): Updated labs about 1 month after dose increase Chronic left SI joint pain 05/23/2024 Overview (05/23/2024): Intra-articular steroid injection through [facility] pain mgmt 03/2024; benefit <3 months Assessment & Plan (05/23/2024 3:33 PM EST): No baseline imaging available for my review today. It is not clear to me that longstanding sacroiliac joint pain is inflammatory in nature. We discussed that if it is clearly inflammatory, this is potential indication for addition of anti-TNF agent given that methotrexate is typically not effective for tx of axial disease. Chronic frontal sinusitis 12/28/2023 Assessment & Plan (12/28/2023 3:56 PM EDT): Chronic frontal sinusitis with right-sided sinus pain. Started her on Augmentin twice a day for 10 days. Hold methotrexate while on Augmentin. Primary osteoarthritis involving multiple joints 04/20/2023 Assessment & Plan (12/28/2023 3:54 PM EDT): Osteoarthritis in multiple joints stable on ibuprofen or Tylenol as needed. Assessment & Plan (08/17/2023 12:31 PM EDT): Osteoarthritis in multiple areas with stiffness but no swelling. She can continue with ibuprofen which she takes rarely. Suggested she do some daily stretching exercises to minimize the stiffness. Assessment & Plan (04/20/2023 3:29 PM EST): Arthritis in multiple joints with stiffness and pain with prolonged activity. She can continue with either Tylenol 650 mg or ibuprofen 600 mg as needed. Enteropathic arthritis 04/15/2023 Overview (05/23/2024): GI is Dr. Miller / ? UC per patient report Mesalamine dc'd 03/2024 resumed 05/2024 due to recurrence of sxs Assessment & Plan (05/23/2024 3:31 PM EST): Suspect recently worsened joint pain is secondary to active colitis during interruption of mesalamine therapy. There is no joint effusion or synovitis on exam today. Mucus-y stool has resolved with resumption of mesalamine though joint pain persists. Patient amenable to trial increased methotrexate dose from 15 mg weekly to 20 mg weekly. 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 She has no bowel issues. She follows up regularly with Dr. Miller. She has a colonoscopy scheduled in March. Continue with same dose of methotrexate. 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 She has no bowel or joint complaints. She is scheduled to see Dr. Miller sometime in October. I would suggest a repeat colonoscopy to see if the colitis has resolved. We can then consider decreasing the dose of methotrexate and/or mesalamine. Sent Beverly for labs today. 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 She has no active synovitis stiffness or swelling and no bowel issues. I would be interested to see when Dr. Miller is interested in rescoping Beverly to determine whether the sigmoid colitis has resolved. Once the colitis has resolved and she continues to have no joint issues, we can start lowering the methotrexate by 1 tablet every 8 weeks. We will send her for some baseline labs today. Encounters Date Type Department Care Team Description 12/19/2024 1:53 PM EDT - 12/19/2024 11:59 PM EDT Hospital Encounter [facility] [address] [place] [address] Marta Cortez MD Discharge Disposition: Home or Self Care 12/19/2024 1:30 PM EDT Office Visit [facility] Rheumatology [address] [place] [address] Marta Cortez MD Enteropathic arthritis (Primary Dx); Chronic left SI joint pain; Primary osteoarthritis involving multiple joints; High risk medications (not anticoagulants) long-term use; Immunosuppression due to drug therapy from Last 3 Months Family History Medical History Relation Comments No Known Problems Brother No Known Problems Daughter Cancer Father Diabetes Maternal Grandmother Arthritis Mother No Known Problems Sister Ulcerative colitis Son Relation Status Comments Brother Alive Daughter Alive Father Maternal Grandmother Mother Sister Alive Son Alive Social History Tobacco Use Types Packs/Day Years Used Date Smoking Tobacco: Former Cigarettes Q uit: 1970 Smokeless Tobacco: Never Tobacco Cessation:Counseling Given: Not Answered Alcohol Use Standard Drinks/Week Comments Yes 2 [...] PM EDT Sexual Orientation Not on file Last Filed Vital Signs Vital Sign Reading Time Taken Comments Blood Pressure 108/60 12/19/2024 1:30 PM EDT Pulse 81 12/19/2024 1:30 PM EDT Temperature 36.3 C (97.4 F) 03/21/2024 11:05 AM EDT Respiratory Rate 14 03/21/2024 11:19 AM EDT Oxygen Saturation 95% 12/19/2024 1:30 PM EDT Inhaled Oxygen Concentration - - Weight 81.6 kg (180 lb) 12/19/2024 1:30 PM EDT Height 162.6 cm (5' 4 ) 12/21/2023 10:39 AM EDT Body Mass Index 30.9 12/21/2023 10:39 AM EDT Plan of Treatment Health Maintenance Due Date Last Done Comments Adult Td,Tdap Booster 1948 LIPID PANEL 1948 DEPRESSION SCREENING 1960 HEPATITIS C SCREENING 1966 PNEUMOCOCCAL VACCINES (50+ years) (1 of 2 - PCV) 12/11/1967 OSTEOPOROSIS SCREENING INITIAL (ONE-TIME) 2013 ZOSTER VACCINES (2 of 2) 03/08/2019 01/11/2019 COVID-19 VACCINE (10 - Moderna risk 2023- season) 2025 08/23/2024, 01/11/2024, 03/03/2023, Additional history exists POTASSIUM LEVEL 12/19/2025 12/19/2024, 06/09, 05/10/2024, Additional history exists SMOKING Hx and SMOKELESS TOBACCO SCREENING 12/19/2025 12/19/2024 HEPATITIS A VACCINES Aged Out 09/16/2000, 02/24/20 00 No longer eligible based on patient's age to complete this topic MENINGOCOCCAL VACCINES (ACWY) Aged Out 10/13/2005, 10/13/2001 No longer eligibl e based on patient's age to complete this topic RSV VACCINE Completed 05/07/2024 HIB VACCINES Aged Out No longer eligi ble based on patient's age to complete this topic MENINGOCOCCAL VACCINES (B) Aged Out N o longer eligible based on patient's age to complete this topic Medical Devices Implanted Type Area Photography Coordinator Device Identifier Shelf Expiration Date Model / Serial / Lot Bl Rotator Cuff Clips Procedures Procedure Name Priority Date/Time Associated Diagnosis Comments COMPREHENSIVE METABOLIC PANEL Routine 12/19/2024 1:59 PM EDT Enteropathic arthritis CBC Routine 12/19/2024 1:59 PM EDT Enteropathic arthritis SEDIMENTATION RATE (ESR) Routine 12/19/2024 1:59 PM EDT Enteropathic arthritis C-REACTIVE PROTEIN Routine 12/19/2024 1: 59 PM EDT Enteropathic arthritis from Last 3 Months Results * (ABNORMAL) Comprehensive metabolic panel (12/19/2024 1:59 PM EDT) SODIUM 139 133 - 146 mmol/L [facility] POTASSIUM 3.6 3.3 - 5.1 mmol/L [facility] CHLORIDE 99 96 - 108 mmol/L [facility] CO2 31 21 - 35 mmol/L [facility] BUN 18 6 - 19 mg/dL [facility] CREATININE 0.70 0.5 - 1.5 mg/dL [facility] GLUCOSE 119(H) 70 - 99 mg/dL [facility] ALBUMIN 4.4 3.9 - 4.8 g/dL [facility] TOTAL PROTEIN 7.2 6.5 - 8.0 g/dL [facility] CALCIUM 9.9 8.4 - 10.3 mg/dL [facility] ALKALINE PHOSPHATASE 69 39 - 117 U/L [facility] TOTAL BILIRUBIN 0.4 0.0 - 1.2 mg/dL [facility] AST 27 0 - 37 U/L [facility] ALT 26 0 - 40 U/L [facility] GLOBULIN 2.8 1 - 4.8 g/dL [facility] EGFR 90 >59 mL/min/1.7 3m2 [facility] Comment:Estimated glomerular filtration rate calculated using the CKD-EPI refit equation. ANION GAP 13 10 - 20 mmol/L [facility] Blood 12/19/2024 1:59 PM EDT 12/19/2024 2:01 PM EDT Marta Cortez MD LAB BLOOD ORDERABLES Final Res ult Performing Organization Address City/[facility]/ZIP Co de Phone Number [address] [address] * Sedimentation rate (ESR) (12/19/2024 1:59 PM EDT) ESR 11 0 - 30 mm/h [facility] Blood 12/19/2024 1:59 PM EDT 12/19/2024 2:01 PM EDT Marta Cortez MD LAB BLOOD ORDERABLES Final Res ult Performing Organization Address City/[facility] Co de Phone Number [address] [address] * CBC (12/19/2024 1:59 PM EDT) WBC 6.63 4.00 - 11.00 K/uL [facility] RBC 4.43 4.00 - 5.20 M/uL [facility] HGB 12.9 12.0 - 16.0 g/dL [facility] HCT 40.3 36.0 - 46.0 % [facility] PLT 296 150 - 450 K/uL [facility] MCV 91.0 80.0 - 100.0 fL [facility] MCH 29.1 27.0 - 31.0 pg [facility] MCHC 32.0 32.0 - 36.0 g/dL [facility] RDW 14.2 11.5 - 14.5 % [facility] MPV 9.9 8.4 - 12.0 fL [facility] NRBC 0.00 0.00 /100 WBCs [facility] ABSOLUTE NRBC 0.00 0.00 K/uL [facility] Blood 12/19/2024 1:59 PM EDT 12/19/2024 2:01 PM EDT us Marta Cortez MD LAB BLOOD ORDERABLES Final Res ult [address] [address] * (ABNORMAL) C-Reactive Protein (12/19/2024 1:59 PM EDT) C REACTIVE PROTEIN 7.3(H) 0.0 - 4.0 mg/L [facility] Blood 12/19/2024 1:59 PM EDT 12/19/2024 2:01 PM EDT us Marta Cortze MD LAB BLOOD ORDERABLES Final Res ult Performing Organization Address City/[facility]/ZIP Co de Phone Number [address] [address] from Last 3 Months Insurance [employer] H[employer] Care Teams Surfacing Machine Operator Relationship Specialty Start Date End Date Gwen Stahl MD [address] [place] [address] [address] [place] [address] [email or web address] PCP - General Internal Medicine 06/05/22 Additional Source Comments The information contained in this document represents components of the legal health record. It is not the complete legal health record.[facility]
--- OUTSIDE RECORDS SUMMARY | 2025-01-31 06:17 | XMS_ITS | Encounter Summary ---
Author Organization [facility] Address [address] [address] Phone Care Team Providers Care Resistance Welder Name Role Phone Gwen Stahl MD Primary Care Provider [phone] [phone] Encounter Details Date Type Department Care Team (Late st Contact Info) Description 03/21/2024 Procedure Pass [facility] Endoscopy Admitting Dept Virtual Department [address] [place] [address] Social History Tobacco Use Types Packs/Day Years [...] on filedocumented in this encounter Care Teams Resistance Welder Relationship Specialty Start Date End Date Gwen Stahl MD [address] [place] [address] [email or web address] PCP - General Internal Medicine 06/05/22 documented as of this encounter Additional Source Comments The information contained in this document represents components of the legal health record. It is not the complete legal health record.[facility]
== END 2025-01-31 06:16 | disposition home or self-care (01) ==
LOC: CF 06:15
PROVIDERS: Visit Provider Anesthesiology
DX: M53.3 Sacrococcygeal disorders, not elsewhere classified (principal)
CPT/HCPCS: 27096; J2003; J2795; J3301; Q9967

== ENCOUNTER 2025-01-31 14:36 | Outpatient (AMB) | payer MEDICARE, SELFPAY ==
[2025-01-31 14:41] VITALS: BP 117/61; PULSE 79; RESP 18; O2SAT 98
--- NOTE | 2025-01-31 14:41 | MHC.OFFVIS ---
Vital Signs 01/31/25 14:41 01/31/25 14:57 Weight 172 lb BP 117/61 112/56 L Blood Pressure Location Lt brachial Lt brachial Position Sitting Sitting Respiration 18 18 Pulse 79 75 Pulse Oximetry (%) 98 99 Oxygen Delivery Method Room Air Room Air Intake Visit Reasons: (L) Therapeutic SIJ Injection Allergies morphine Allergy (Unknown, Verified 12/21/24 13:17) Itching PFSH Medical History (Updated 11/27/23 @ 11:59 by Rona Mireles APRN, ENERGY EFFICIENT SITE MANAGER) Migraine Enteropathic arthritis GERD (gastroesophageal reflux disease) Hypertension Diabetes mellitus type 2, noninsulin dependent Colon polyps Colitis Social History (Updated 11/27/23 @ 10:57 by CAPO Chu) Patient Tobacco Use Status: Never used Tobacco Physical Exam Vital Signs: Last Vital Signs Pulse 79 01/31/25 14:41 Resp 18 01/31/25 14:41 BP 117/61 01/31/25 14:41 Pulse Ox 98 01/31/25 14:41 Oxygen Delivery Method Room Air 01/31/25 14:41 Assessment & Plan Assessment & Plan (1) Sacroiliac joint dysfunction of left side: Code(s): M53.3 - Sacrococcygeal disorders, not elsewhere classified Category: Medical Plan: Left therapeutic sacroiliac joint injection Informed consent was explained thoroughly to the patient.? All questions about benefits and risks for the procedure were answered. Patient came to the operating room and was positioned prone on the operating table with the pillow under the abdomen. The lower back and buttocks of the patient were prepped with ChloraPrep prepped and draped with sterile utility towels.? Sterilely draped C-arm was brought over the operating field and sq picture of patient's pelvis was demonstrated on the screen.? For the left joint tilting C-arm contralateral to the site of the joint the most posterior portion of the joints was superimposed with anterior silhouette of the joint.? Skin was injected in the projection of the joint slightly medial to the location of the joint with 25 gauge 1/2 inch needle using local lidocaine 2% . After that 22 gauge 3 and 1/2 inch needle was driven to the left joint in tunnel vision fashion.? When needle entered the joint capsule injection of the contrast was performed demonstrating intra-articular and minimally periarticular spread of the contrast.? After that 4 cc. of ropivacaine 0.5% mixed with Kenalog 40 mg was injected in the joint. After that needle was removed sterile Band-Aid was applied. The patient tolerated the procedure well. She was taken outside of the operating room to recovery room where she recovered uneventfully. Plan Orders: Orders FL guidance in treatment room Today M53.3 - Sacrococcygeal disorders, not elsewhere classified Coding Level of Care Code Procedure Only Diagnoses Sacroiliac joint dysfunction of left side M53.3
[2025-01-31 14:57] VITALS: BP 112/56; PULSE 75; RESP 18; O2SAT 99
--- OUTSIDE RECORDS SUMMARY | 2025-01-31 15:32 | XMS_ITS | Clinical Summary ---
Author Organization [facility] Address [address] [address] Phone Care Team Providers Care Life Sciences Director Name Role Phone Gwen Stahl MD Primary Care Provider [phone] [phone] Allergies Active Allergy Reactions Criticality Noted Date [...] 05/23/2024 Overview (05/23/2024): Intra-articular steroid injection through [facility] 03/2024; benefit <3 months Assessment [...] PM EDT Hospital Encounter [facility] [address] [place] [address] Marta Cortez MD Discharge Disposition: Home or Self Care 12/19/2024 1:30 PM EDT Office Visit [facility] Rheumatology [address] [place] [address] Marta Cortez MD Enteropathic arthritis (Primary Dx); [...] this topic Medical Devices Implanted Type Area Email Deployment Specialist Device Identifier Shelf Expiration Date Model / [...] EDT) SODIUM 139 133 - 146 mmol/L [facility] POTASSIUM 3.6 3.3 - 5.1 mmol/L [facility] CHLORIDE 99 96 - 108 mmol/L [facility] CO2 31 21 - 35 mmol/L [facility] BUN 18 6 - 19 mg/dL [facility] CREATININE 0.70 0.5 - 1.5 mg/dL [facility] GLUCOSE 119(H) 70 - 99 mg/dL [facility] ALBUMIN 4.4 3.9 - 4.8 g/dL [facility] TOTAL PROTEIN 7.2 6.5 - 8.0 g/dL [facility] CALCIUM 9.9 8.4 - 10.3 mg/dL [facility] ALKALINE PHOSPHATASE 69 39 - 117 U/L [facility] TOTAL BILIRUBIN 0.4 0.0 - 1.2 mg/dL [facility] AST 27 0 - 37 U/L [facility] ALT 26 0 - 40 U/L [facility] GLOBULIN 2.8 1 - 4.8 g/dL [facility] EGFR 90 >59 mL/min/1.7 3m2 [facility] Comment:Estimated glomerular filtration rate calculated using the CKD-EPI refit equation. ANION GAP 13 10 - 20 mmol/L [facility] Blood 12/19/2024 1:59 PM EDT 12/19/2024 2:01 PM EDT Marta Cortez MD LAB BLOOD ORDERABLES Final Res ult Performing Organization Address City/[facility]/ZIP Co de Phone Number [address] [address] * Sedimentation rate (ESR) (12/19/2024 1:59 PM EDT) ESR 11 0 - 30 mm/h [facility] Blood 12/19/2024 1:59 PM EDT 12/19/2024 2:01 PM EDT Marta Cortez MD LAB BLOOD ORDERABLES Final Res ult Performing Organization Address City/[facility] Co de Phone Number [address] [address] * CBC (12/19/2024 1:59 PM EDT) WBC 6.63 4.00 - 11.00 K/uL [facility] RBC 4.43 4.00 - 5.20 M/uL [facility] HGB 12.9 12.0 - 16.0 g/dL [facility] HCT 40.3 36.0 - 46.0 % [facility] PLT 296 150 - 450 K/uL [facility] MCV 91.0 80.0 - 100.0 fL [facility] MCH 29.1 27.0 - 31.0 pg [facility] MCHC 32.0 32.0 - 36.0 g/dL [facility] RDW 14.2 11.5 - 14.5 % [facility] MPV 9.9 8.4 - 12.0 fL [facility] NRBC 0.00 0.00 /100 WBCs [facility] ABSOLUTE NRBC 0.00 0.00 K/uL [facility] Blood 12/19/2024 1:59 PM EDT 12/19/2024 2:01 PM EDT us Marta Cortez MD LAB BLOOD ORDERABLES Final Res ult [address] [address] * (ABNORMAL) C-Reactive Protein (12/19/2024 1:59 PM EDT) C REACTIVE PROTEIN 7.3(H) 0.0 - 4.0 mg/L [facility] Blood 12/19/2024 1:59 PM EDT 12/19/2024 2:01 PM EDT us Marta Cortez MD LAB BLOOD ORDERABLES Final Res ult Performing Organization Address City/[facility]/ZIP Co de Phone Number [address] [address] from Last 3 Months Insurance [employer] H[employer] Care Teams Life Sciences Director Relationship Specialty Start Date End Date Gwen Stahl MD [address] [place] [address] [address] [place] [address] [email or web address] PCP - General Internal Medicine 06/05/22 Additional Source Comments The information contained in this document represents components of the legal health record. It is not the complete legal health record.[facility]
--- OUTSIDE RECORDS SUMMARY | 2025-01-31 15:32 | XMS_ITS | Encounter Summary ---
Author Organization [facility] Address [address] [address] Phone Care Team Providers Care Buckle Attaching Machine Operator Name Role Phone Gwen Stahl MD Primary Care Provider [phone] Encounter Details Date Type Department Care Team (Late st Contact Info) Description 03/21/2024 Procedure Pass [facility] Endoscopy Admitting Dept Virtual Department [address] [place] [address] Social History Tobacco Use Types Packs/Day Years [...] on filedocumented in this encounter Care Teams Buckle Attaching Machine Operator Relationship Specialty Start Date End Date Gwen Stahl MD [address] [place] [address] [email or web address] PCP - General Internal Medicine 06/05/22 documented as of this encounter Additional Source Comments The information contained in this document represents components of the legal health record. It is not the complete legal health record.[facility]
--- OUTSIDE RECORDS SUMMARY | 2025-01-31 15:32 | XMS_ITS | Encounter Summary ---
Author Organization [facility] Address [address] [facility] [address] [place] [address] Phone Care Team Providers Care Federal Java Developer Name Role Phone Gwen Stahl MD Primary Care Provider [phone] [phone] Encounter Details Date Type Department Care Team (Latest Contact Info) Description 05/10/2024 Transcribe Orders [facility] [address] [facility] 2nd [place] [address] Cirilo Miller MD 10 [facility] 2 [place] [address] [email or web address] Enteropathic arthritis (Primary Dx); Medication monitoring encounter [...] Center ESR 8 0 - 30 mm/h [facility] Blood 05/10/2024 2:29 PM EST 05/10/2024 2:32 PM EST Cirilo Miller MD LAB BLOOD ORDERABLES Final Res ult Performing Organization Address City/[facility]/ZIP Co de Phone Number [address] [address] * (ABNORMAL) C-Reactive Protein (05/10/2024 2:29 PM EST) [facility] C REACTIVE PROTEIN 22.2(H) 0.0 - 4.0 mg/L [facility] Blood 05/10/2024 2:29 PM EST 05/10/2024 2:32 PM EST Cirilo Miller MD LAB BLOOD ORDERABLES Final Res ult Performing Organization Address City/[facility]/ZIP Co de Phone Number [address] [address] * (ABNORMAL) Comprehensive metabolic panel (05/10/2024 2:29 PM EST) Pathologist [facility] SODIUM 138 133 - 146 mmol/L [facility] POTASSIUM 3.5 3.3 - 5.1 mmol/L [facility] CHLORIDE 95(L) 96 - 108 mmol/L [facility] CO2 30 21 - 35 mmol/L [facility] BUN 16 6 - 19 mg/dL [facility] CREATININE 0.80 0.5 - 1.5 mg/dL [facility] GLUCOSE 93 70 - 99 mg/dL [facility] ALBUMIN 4.6 3.9 - 4.8 g/dL [facility] TOTAL PROTEIN 7.7 6.5 - 8.0 g/dL [facility] CALCIUM 10.0 8.4 - 10.3 mg/dL [facility] ALKALINE PHOSPHATASE 74 39 - 117 U/L [facility] TOTAL BILIRUBIN 0.4 0.0 - 1.2 mg/dL [facility] AST 28 0 - 37 U/L [facility] ALT 21 0 - 40 U/L [facility] GLOBULIN 3.1 1 - 4.8 g/dL [facility] EGFR 77 >59 mL/min/1.7 3m2 [facility] Comment:Estimated glomerular filtration rate calculated using the CKD-EPI refit equation. ANION GAP 17 10 - 20 mmol/L [facility] Blood 05/10/2024 2:29 PM EST 05/10/2024 2:32 PM EST us Cirilo Miller MD LAB BLOOD ORDERABLES Final Res ult Performing Organization Address City/State/[facility] Co de Phone Number [facility] [address] [place] [address] * CBC (05/10/2024 2:29 PM EST) WBC 8.77 4.00 - 11.00 K/uL [facility] RBC 4.72 4.00 - 5.20 M/uL [facility] HGB 13.5 12.0 - 16.0 g/dL [facility] HCT 42.1 36.0 - 46.0 % [facility] PLT 294 150 - 450 K/uL [facility] MCV 89.2 80.0 - 100.0 fL [facility] MCH 28.6 27.0 - 31.0 pg [facility] MCHC 32.1 32.0 - 36.0 g/dL [facility] RDW 14.5 11.5 - 14.5 % [facility] MPV 9.4 8.4 - 12.0 fL [facility] NRBC 0.00 0.00 /100 WBCs [facility] ABSOLUTE NRBC 0.00 0.00 K/uL [facility] Blood 05/10/2024 2:29 PM EST 05/10/2024 2:32 PM EST us Cirilo Miller MD LAB BLOOD ORDERABLES Final Res ult Performing Organization Address City/State/[facility] Co de Phone Number [facility] [address] [place] [address] documented in this encounter Visit Diagnoses Diagnosis Enteropathic arthritis- Primary Arthropathy associated with gastrointestinal conditions other than infections Medication monitoring encounter Encounter for therapeutic drug monitoring documented in this encounter Care Teams Federal Java Developer Relationship Specialty Start Date End Date Gwen Stahl MD [address] [place] [address] [email or web address] PCP - General Internal Medicine 06/05/22 documented as of this encounter Additional Source Comments The information contained in this document represents components of the legal health record. It is not the complete legal health record.[facility]
--- OUTSIDE RECORDS SUMMARY | 2025-01-31 15:32 | XMS_ITS | Encounter Summary ---
Author Organization [facility] Address [address] [address] Phone Care Team Providers Care Eyelet Cutter Name Role Phone Gwen Stahl MD Primary Care Provider [phone] [phone] Encounter Details Date Type Department Care Team (Late st Contact Info) Description 06/06/2022 Procedure Pass [facility] Endoscopy Admitting Dept Virtual Department [address] [place] [address] Social History Tobacco Use Types Packs/Day Years [...] on filedocumented in this encounter Care Teams Eyelet Cutter Relationship Specialty Start Date End Date Gwen Stahl MD [address] [place] [phone] [email or web address] PCP - General Internal Medicine 06/05/22 documented as of this encounter Additional Source Comments The information contained in this document represents components of the legal health record. It is not the complete legal health record.[facility]
--- OUTSIDE RECORDS SUMMARY | 2025-01-31 15:32 | XMS_ITS | Clinical Summary ---
Author Organization [facility] Address [address] [place] [address] Phone Care Team Providers Care Business Banking Sales Assistant Name Role Phone Suraj Santiago MD Primary Care Provider [phone] Allergies Active Allergy Reactions Criticality Noted Date [...] 11/29/2024 11:00 AM EDT Office Visit Urogynecology [address] [phone] Shannon Reeves MD Prolapse of anterior vaginal wall (Primary Dx); Nocturia; Urgency incontinence; Prolapse of posterior vaginal wall from Last 3 Months Surgical History Surgery Date Site/Laterality Comments LAPAROSCOPIC HYSTERECTOMY 06/08/2009 - 06/07/2010 SUPRACERVICAL TUBAL LIGATION 06/08/1980 - 06/07/1981 BLADDER SUSPENSION 06/08/1996 - 06/07/1997 Dr. Alejandro Medical History Medical History Date Comments Diabetes ([facility] V24, [facility] V28) Hypertension Hyperlipidemia Enteropathic arthritis Rheumatoid arthritis ([facility] V24, [facility] V28) Family History Medical History [...] Negative Ketones UA POC Negative Negative Specific [place] UA POC 1.020 Blood UA POC Negative [...] Final Result from Last 3 Months Insurance [facility] [address] [place] [address] Care Teams Business Banking Sales Assistant Relationship Specialty Start Date End Date Suraj Santiago MD [facility] [address] [place] [address] PCP - General Internal Medicine 06/26/14
== END 2025-01-31 14:58 | disposition home or self-care (01) ==
LOC: HO.PMCPRC 14:36
PROVIDERS: PCP Internal Medicine; Visit Provider Anesthesiology
DX: M53.3 Sacrococcygeal disorders, not elsewhere classified (principal)
CPT/HCPCS: 27096

== ENCOUNTER 2025-04-07 09:15 | Outpatient (AMB) | payer MEDICARE, SELFPAY ==
[2025-04-07 09:17] VITALS: BP 137/63; PULSE 79; RESP 16; O2SAT 97; BMI 30.7
--- NOTE | 2025-04-07 09:17 | MHC.OFFVIS ---
Vital Signs 04/07/25 09:17 Height 5 ft 4 in Weight 179 lb BMI 30.7 BP 137/63 Blood Pressure Location Rt brachial Position Sitting Respiration 16 Pulse 79 Pulse Source Pulse Oximeter Pulse Oximetry (%) 97 Oxygen Delivery Method Room Air Intake Visit Reasons: S/P (L) Therapeutic SIJ Injection Coding Quality Analyst Required: No Accompanied by: Self / Same As Patient Allergies morphine Allergy (Unknown, Verified 04/07/25 09:17) Itching HPI Comments Details: The patient is a 74-year-old female presenting to the office for follow up s/p left therapeutic SIJ injection performed 01/31/2025. Today she reports experiencing sacroiliac joint pain and bursitis, which have been persistent issues. The sacroiliac joint injection initially provided relief for two months following the procedure, but the pain has since returned, affecting her ability to sleep and causing discomfort during daily activities. The pain is described as being located in the pelvic area, extending to the bursa and occasionally radiating down the leg to the knee. The patient has a history of arthritis, which is being treated, although she notes that the current treatment may not be sufficient. She has tried physical therapy in the past, which she found to be ineffective and sometimes exacerbating her pain. Recently, she traveled to [place] and engaged in significant physical activity, including walking and climbing, which she managed well at the time. However, upon returning home, her pain increased with routine activities around the house. - Onset and Timing: Pain relief lasted for two months post-injection before returning. - Quality and Character: Described as discomfort in the pelvic area, extending to the bursa and down the leg. - Primary Location: Pelvic area and bursa. - Areas of Radiation: Occasionally radiates down the leg. - Exacerbating Factors: Routine activities and physical exertion post-travel. - Relieving Factors: Initial relief from injections. - Interference with Activities: Affects sleep and daily activities. - Affect: Pain impacts sleep and daily comfort. - Analgesia: Previously used ibuprofen and injections; current pain level is uncomfortable. - Adverse Effects: No specific adverse effects from medications noted. - Activities of Daily Living: Pain interferes with sleep and routine activities. - Aberrant Drug Related Behaviors: None reported. [facility] Medical History (Updated 04/10/25 @ 08:49 by Rona Mireles, SENIOR NETWORK SECURITY ENGINEER, PEN MAKER) Migraine Enteropathic arthritis GERD (gastroesophageal reflux disease) Hypertension Diabetes mellitus type 2, noninsulin dependent Colon polyps Colitis Social History (Updated 11/27/23 @ 10:57 by CAPO Chu) Patient Tobacco Use Status: Never used Tobacco Review of Systems Narrative - Musculoskeletal: Reports pain in the pelvic area and bursa, radiating down the leg. - General: Reports discomfort affecting sleep and daily activities. Physical Exam Exam Exam: General: awake, alert, oriented. Answers questions appropriately. Fully engaged in examination. Skin: warm, dry, intact HEENT: Normocephalic. Hearing intact. Cardiac: External chest normal in appearance. Respiratory: No cough, audible wheezing or stridor. Abdomen: without gross distension. MS: No obvious swelling or deformities. Able to stand on bilateral tiptoes and bilateral heels.? Able to transition from sit to stand unassisted. Tenderness to palpation over left GTB Neurological: Oriented to person, place, time and situation. Thought process intact. No gait abnormalities appreciated. Psychiatric: Appropriate mood and affect. Good judgment and insight. Vital Signs: Last Vital Signs Pulse 79 04/07/25 09:17 Resp 16 04/07/25 09:17 BP 137/63 04/07/25 09:17 Pulse Ox 97 04/07/25 09:17 Oxygen Delivery Method Room Air 04/07/25 09:17 BMI result Body Mass Index 30.7 Results Reviewed Results Reviewed: Assessment & Plan Assessment & Plan (1) Sacroiliac joint dysfunction of left side: Code(s): M53.3 - Sacrococcygeal disorders, not elsewhere classified Category: Medical (2) Greater trochanteric bursitis of left hip: Code(s): M70.62 - Trochanteric bursitis, left hip Category: Medical Plan The patient was presented with several management options for her chronic pain, specifically targeting the sacroiliac joint pain and bursitis. One option discussed was a surgical fusion procedure to stabilize the joint, which would prevent movement and potentially alleviate pain. Alternatively, a Sprint temporary nerve stimulator was proposed, which involves placing a small wire near the sacroiliac joint to disrupt pain signals. This procedure is minimally invasive and does not require anesthesia, offering pain relief for 9 months up to a year. The patient was also informed about the possibility of repeating the injection if needed. Additionally, the use of a sacroiliac belt was suggested to provide support and potentially reduce pain. Patient will return to the office for left GTB injection to help alleviate the pain associated with left greater trochanteric bursitis. Patient was informed and verbally consented to the use of an ambient scribe for clinic note documentation during this visit. Patient Instructions: - Consider the options discussed for managing your pain, including the nerve stimulator and surgical fusion. - Follow up if you decide to proceed with any treatment options. - Try using a sacroiliac belt for additional support. - Monitor your pain levels and report any significant changes. - Return to the office as scheduled for left GTB injection Coding Level of Care Code Est Pt Level 3 (66960) Complex EM visit Add On G2211 Diagnoses Sacroiliac joint dysfunction of left side M53.3 Greater trochanteric bursitis of left hip M70.62
--- OUTSIDE RECORDS SUMMARY | 2025-04-07 10:13 | XMS_ITS | Encounter Summary ---
Author Organization [facility] Address [address] [address] Phone Care Team Providers Care Plate Gauger Name Role Phone Gwen Stahl MD Primary Care Provider [phone] Reason for Visit * Reason Comments Medication Refill Encounter Details Date Type Department Care Team (Late st Contact Info) Description 04/07/2025 Refill [facility] Rheumatology [address] [place] [address] Justina Elizabeth MD, MPH [address] [facility], [address] [place] [address] [email or web address] Medication Refill Social History Tobacco Use Types Packs/Day Years [...] as of this encounter Plan of Treatment Upcoming Encounters Date Type Department Care Team (Late st Contact Info) Description 04/25/2025 11:00 AM EST Office Visit [facility] Rheumatology [address] [place] [address] Therese Ga MD [address] [place] [address] [address] [place] [address] [email or web address] documented as of this encounter Visit Diagnoses Diagnosis 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 It is not the complete legal health record.[facility]
--- OUTSIDE RECORDS SUMMARY | 2025-04-07 10:13 | XMS_ITS | Encounter Summary ---
Author Organization [facility] Address [address] [address] Phone Care Team Providers Care Groutman Name Role Phone Gwen Stahl MD Primary Care Provider [phone] Encounter Details Date Type Department Care Team (Late st Contact Info) Description 03/21/2024 Procedure Pass [facility] Endoscopy Admitting Dept Virtual Department [address] [place] [address] Social History Tobacco Use Types Packs/Day Years [...] Description 04/25/2025 11:00 AM EST Office Visit [facility] Rheumatology [address] [place] [address] Therese Ga MD [address] [facility] [address] [place] [address] [email or web address] documented as of this encounter Visit Diagnoses Not on filedocumented in this encounter Care Teams Groutman Relationship Specialty Start Date End Date Gwen Stahl MD [address] [place] [address] [email or web address] PCP - General Internal Medicine 06/05/22 documented as of this encounter Additional Source Comments The information contained in this document represents components of the legal health record. It is not the complete legal health record.[facility]
--- OUTSIDE RECORDS SUMMARY | 2025-04-07 10:13 | XMS_ITS | Clinical Summary ---
Author Organization [facility] Address [address] [address] Phone Care Team Providers Care Grain Ii Farmworker Name Role Phone Gwen Stahl MD Primary Care Provider [phone] Allergies Active Allergy Reactions Criticality Noted Date Comments Morphine Hives 06/05/2022 face Medications triamterene-h ydroCHLOROthi azide (MAXZIDE-25) 37.5-25 mg per tablet Take 1 tablet by mouth daily. 03/30/20 22 Active metoprolol succinate (TOPROL-XL) 100 MG 24 hr tablet Take 100 mg by mouth daily. 03/21/20 22 Active omeprazole (PRILOSEC) 20 MG capsule Take by mouth daily. 04/06/20 22 Active albuterol 90 mcg/actuation inhaler Inhale 2 puffs into the lungs every 6 (six) hours as needed for wheezing. Active blood sugar diagnostic (GLUCOSE BLOOD) Strp strips USE EVERY DAY 04/29/20 22 Active mesalamine (ASACOL HD) 800 mg TbEC TAKE 3 TABLETS BY MOUTH EVERY DAY 10/29/19 23 Active metroNIDAZOLE (METROGEL) 1 % gel Apply topically 2 (two) times a day. APPLY TO AFFECTED AREA 01/05/20 24 Active folic acid (FOLVITE) 1 MG tablet Take 1 tablet (1,000 mcg total) by mouth daily. Except the day you take your methotrexate 90 tablet 3 09/28/19 25 Active atorvastatin (LIPITOR) 10 MG tablet Take 10 mg by mouth daily. 09/07/19 25 Active estradioL (ESTRACE) 0.01 % (0.1 mg/gram) vaginal cream Place 0.5 g vaginally. 11/30/19 25 Active GEMTESA 75 mg tablet Take 75 mg by mouth daily. 11/27/19 25 Active methotrexate 2.5 MG Oral tabletIndicat ions:Enteropa thic arthritis Take 8 tablets (20 mg total) by mouth once a week. 104 tablet 04/05/20 25 Active methotrexate 2.5 MG Oral tabletIndicat ions:Enteropa thic arthritis Take 8 tablets (20 mg total) by mouth once a week. 96 tablet 12/20/19 25 025 Discontinued methotrexate 2.5 MG Oral tabletIndicat ions:Enteropa thic arthritis Take 8 tablets (20 mg total) by mouth once a week. 32 tablet 03/13/20 25 025 Discontinued(R eorder) Active Problems Problem Noted Date Diagnosed Date Encounter for methotrexate monitoring 05/23/2024 Assessment & Plan (05/23/2024 3:33 PM EST): Updated labs about 1 month after dose increase Chronic left SI joint pain 05/23/2024 Overview (05/23/2024): Intra-articular steroid injection through [place] [facility] 03/2024; benefit <3 months Assessment [...] Encounters Date Type Department Care Team Description 04/07/2025 Refill [facility] Rheumatology [address] [place] [address] Justina Elizabeth MD, MPH Medication Refill 04/05/2025 Orders Only [facility] Rheumatology [address] [place] [address] [place] [address] Osiris Bardshaw MA Encounter for methotrexate monitoring 03/12/2025 Refill [facility] Rheumatology [address] [place] [address] [place] [address] Marta Cortez MD Medication Refill from Last 3 Months Family History Medical [...] 12/21/2023 10:39 AM EDT Plan of Treatment Upcoming Encounters Date Type Department Care Team (Late st Contact Info) Description 04/25/2025 11:00 AM EST Office Visit [facility] Rheumatology [address] [place] [address] Therese Ga MD [address] [place] [address], [address] [place] [address] [email or web address] Health Maintenance Due Date Last Done Comments Adult Td,Tdap Booster 1948 LIPID PANEL 1948 DEPRESSION SCREENING 1960 HEPATITIS C SCREENING 1966 PNEUMOCOCCAL VACCINES (50+ years) (1 of 2 - PCV) 12/11/1967 OSTEOPOROSIS SCREENING INITIAL (ONE-TIME) 2013 ZOSTER VACCINES (2 of 2) 03/08/2019 01/11/2019 INFLUENZA VACCINE (#1) 2025 4, 03/03/2023, 04/06/2022, Additional history exists COVID-19 VACCINE ( season) 2025 08/23/2024, 01/11/2024, 03/03/2023, Additional history [...] this topic Medical Devices Implanted Type Area Master Fire Control Technician Device Identifier Shelf Expiration Date Model / Serial / Lot Bl Rotator Cuff Clips Procedures Procedure Name Priority Date/Time Associated Diagnosis Comments COMPREHENSIVE METABOLIC PANEL Routine 04/03/2025 9:30 AM EDT Encounter for methotrexate monitoring CBC Routine 04/03/2025 9:29 AM EDT Encounter for methotrexate monitoring COMPREHENSIVE METABOLIC PANEL Routine 12/19/2024 1:59 PM EDT Enteropathic arthritis from Last 3 Months or Most Recently Relevant to Health Maintenance Results * Comprehensive metabolic panel (04/03/2025 9:30 AM EDT) Only the most recent of2 resultswithin the time period is included. Blood Justina Elizabeth MD, MPH LAB BLOOD ORDERABLES Fin al Result EXTERNAL NON-INTERFACED REF LAB * CBC (04/03/2025 9:29 AM EDT) Blood Justina Elizabeth MD, MPH LAB BLOOD ORDERABLES Fin al Result EXTERNAL NON-INTERFACED REF LAB from Last 3 Months or Most Recently Relevant to Health Maintenance Insurance [employer]PLACEMENT Care Teams Grain Ii Farmworker Relationship Specialty Start Date End Date Jorey, Gwen Roxane, MD [address] [place] [address] [email or web address] PCP - General Internal Medicine 06/05/22 Additional Source Comments The information contained in this document represents components of the legal health record. It is not the complete legal health record.[facility]
--- OUTSIDE RECORDS SUMMARY | 2025-04-07 10:13 | XMS_ITS | Clinical Summary ---
Author Organization [facility] Address [address] [place] [address] Phone Care Team Providers Care Supervisor Chlorine Liquefaction Name Role Phone Suraj Santiago MD Primary Care Provider Allergies Active Allergy Reactions Criticality Noted Date [...] at night 42.5 g 3 5 Active Surgical History Surgery Date Site/Laterality Comments LAPAROSCOPIC HYSTERECTOMY 06/08/2009 - 06/07/2010 SUPRACERVICAL TUBAL LIGATION 06/08/1980 - 06/07/1981 BLADDER SUSPENSION 06/08/1996 - 06/07/1997 Dr. Alejandro Medical History Medical History Date Comments Diabetes ([facility] V24, [facility] V28) Hypertension Hyperlipidemia Enteropathic arthritis Rheumatoid arthritis ([facility] V24, [facility] V28) Family History Medical History [...] 11/29/2024 10:47 AM EDT Plan of Treatment Upcoming Encounters Date Type Department Care Team (Late st Contact Info) Description 04/20/2025 10:00 AM EST Procedure visit Urogynecology - [address] [address] Sheridan Parrish, GABI [address] [facility] [address] [place] [address] Health Maintenance Due Date Last Done Comments [...] exists COVID-19 Vaccine (10 - Moderna risk 2023- season) 2025 [...] on patient's age to complete this topic Insurance [facility] [address] [place] [address] Care Teams Supervisor Chlorine Liquefaction Relationship Specialty Start Date End Date Suraj Santiago MD [employer] [address] [facility] [address] [place] [address] PCP - General Internal Medicine 06/26/14
--- OUTSIDE RECORDS SUMMARY | 2025-04-07 10:13 | XMS_ITS | Encounter Summary ---
Author Organization [facility] Address [address] [address] Phone Care Team Providers Care Windows Desktop Engineer Name Role Phone Gwen Stahl MD Primary Care Provider [phone] Encounter Details Date Type Department Care Team (Late Contact Info) Description 06/06/2022 Procedure Pass [facility] Endoscopy Admitting Dept Virtual Department [address] [place] [id number] Social History Tobacco Use Types Packs/Day Years [...] Upcoming Encounters Date Type Department Care Team ([facility] Contact Info) Description 04/25/2025 11:00 AM EST Office Visit [facility] Rheumatology [address] [place] [address] Therese Ga MD [address] [place] [address] [address] [place] [address] documented as of this encounter Visit Diagnoses Not on filedocumented in this encounter Care Teams Windows Desktop Engineer Relationship Specialty Start Date End Date Gwen Stahl MD [address] [place] [address] [address] [place] [address] [email or web address] PCP - General Internal Medicine 06/05/22 documented as of this encounter Additional Source Comments The information contained in this document represents components of the legal health record. It is not the complete legal health record.[facility]
--- OUTSIDE RECORDS SUMMARY | 2025-04-07 10:13 | XMS_ITS | Encounter Summary ---
Author Organization [facility] Address [address] [facility] [address] [place] [address] Phone Care Team Providers Care Cane Splicer Name Role Phone Gwen Stahl MD Primary Care Provider [phone] Encounter Details Date Type Department Care Team (Latest Contact Info) Description 05/10/2024 Transcribe Orders [facility] [address] [facility] 2nd [place] [address] Cirilo Miller MD [address] [facility] 2 [place] [address] [email or web address] Enteropathic arthritis (Primary Dx); Medication monitoring encounter [...] Description 04/25/2025 11:00 AM EST Office Visit [facility] Rheumatology [address] [place] [address] Therese Ga MD [address] [place] [address], [address] [place] [address] [email or web address] documented as of this encounter Results * Sedimentation rate (ESR) (05/10/2024 2:29 PM EST) ESR 8 0 - 30 mm/h [facility] Blood 05/10/2024 2:29 PM EST 05/10/2024 2:32 PM EST us Cirilo Miller MD LAB BLOOD ORDERABLES Final Res ult Performing Organization Address City/[facility] Co de Phone Number [address] [address] * (ABNORMAL) C-Reactive Protein (05/10/2024 2:29 PM EST) C REACTIVE PROTEIN 22.2(H) 0.0 - 4.0 mg/L [facility] Blood 05/10/2024 2:29 PM EST 05/10/2024 2:32 PM EST us Cirilo Miller MD LAB BLOOD ORDERABLES Final Res ult Performing Organization Address City/[facility]/ZIP Co de Phone Number [address] [address] * (ABNORMAL) Comprehensive metabolic panel (05/10/2024 2:29 PM EST) SODIUM 138 133 - 146 mmol/L [facility] POTASSIUM 3.5 3.3 - 5.1 mmol/L [facility] CHLORIDE 95(L) 96 - 108 mmol/L [facility] CO2 30 21 - 35 mmol/L [facility] BUN 16 6 - 19 mg/dL [facility] CREATININE 0.80 0.5 - 1.5 mg/dL [facility] GLUCOSE 93 70 - 99 mg/dL [facility] ALBUMIN 4.6 3.9 - 4.8 g/dL [facility] TOTAL PROTEIN 7.7 6.5 - 8.0 g/dL [facility] CALCIUM 10.0 8.4 - 10.3 mg/dL [facility] ALKALINE PHOSPHATASE 74 39 - 117 U/L [facility] TOTAL BILIRUBIN 0.4 0.0 - 1.2 mg/dL [facility] AST 28 0 - 37 U/L [facility] ALT 21 0 - 40 U/L [facility] GLOBULIN 3.1 1 - 4.8 g/dL [facility] EGFR 77 >59 mL/min/1.7 3m2 [facility] Comment:Estimated glomerular filtration rate calculated using the CKD-EPI refit equation. ANION GAP 17 10 - 20 mmol/L [facility] Blood 05/10/2024 2:29 PM EST 05/10/2024 2:32 PM EST us Cirilo Miller MD LAB BLOOD ORDERABLES Final Res ult [address] [address] * CBC (05/10/2024 2:29 PM EST) WBC 8.77 4.00 - 11.00 K/uL [facility] RBC 4.72 4.00 - 5.20 M/uL [facility] HGB 13.5 12.0 - 16.0 g/dL [facility] HCT 42.1 36.0 - 46.0 % [facility] PLT 294 150 - 450 K/uL [facility] MCV 89.2 80.0 - 100.0 fL [facility] MCH 28.6 27.0 - 31.0 pg [facility] MCHC 32.1 32.0 - 36.0 g/dL [facility] RDW 14.5 11.5 - 14.5 % [facility] MPV 9.4 8.4 - 12.0 fL [facility] NRBC 0.00 0.00 /100 WBCs [facility] ABSOLUTE NRBC 0.00 0.00 K/uL [facility] Blood 05/10/2024 2:29 PM EST 05/10/2024 2:32 PM EST us Cirilo Miller MD LAB BLOOD ORDERABLES Final Res ult Performing Organization Address City/State/[facility] Co de Phone Number [facility] [address] [place] [address] documented in this encounter Visit Diagnoses Diagnosis Enteropathic arthritis- Primary Arthropathy associated with gastrointestinal conditions other than infections Medication monitoring encounter Encounter for therapeutic drug monitoring documented in this encounter Care Teams Cane Splicer Relationship Specialty Start Date End Date Gwen Stahl MD [address] [place] [address] [email or web address] PCP - General Internal Medicine 06/05/22 documented as of this encounter Additional Source Comments The information contained in this document represents components of the legal health record. It is not the complete legal health record.[facility]
--- OUTSIDE RECORDS SUMMARY | 2025-04-07 10:14 | XMS_ITS | Encounter Summary ---
Author Organization [facility] Address [address] [facility] [address] [place] [address] Phone Care Team Providers Care Community Development Aide Name Role Phone Gwen Stahl MD Primary Care Provider [phone] Encounter Details Date Type Department Care Team (Late st Contact Info) Description 04/05/2025 Orders Only [facility] Rheumatology [address] [place], [place] [id number] Osiris Bradshaw MA [address] [place] [address] [email or web address] Encounter for methotrexate monitoring Social History Tobacco Use Types Packs/Day Years [...] Description 04/25/2025 11:00 AM EST Office Visit [facility] Rheumatology [address] [place] [address] Therese Ga MD [address] [place] [address] [address] [place] [address] [email or web address] documented as of this encounter Procedures Procedure Name Priority Date/Time Associated Diagnosis Comments COMPREHENSIVE METABOLIC PANEL Routine 04/03/2025 9:30 AM EDT Encounter for methotrexate monitoring CBC Routine 04/03/2025 9:29 AM EDT Encounter for methotrexate monitoring documented in this encounter Results * Comprehensive metabolic panel (04/03/2025 9:30 AM EDT) Blood us Justina Elizabeth MD, MPH LAB BLOOD ORDERABLES Fin al Result Performing Organization Address [facility] Co de Phone Number EXTERNAL NON-INTERFACED REF LAB * CBC (04/03/2025 9:29 AM EDT) Blood us Justina Elizabeth MD, MPH LAB BLOOD ORDERABLES Fin al Result Performing Organization Address [facility] Co de Phone Number EXTERNAL NON-INTERFACED REF LAB documented in this encounter Visit Diagnoses Diagnosis Encounter for methotrexate monitoring documented in this encounter Care Teams Community Development Aide Relationship Specialty Start Date End Date Gwen Stahl MD [address] [place] [address] [address] [place] [address] [email or web address] PCP - General Internal Medicine 06/05/22 documented as of this encounter Additional Source Comments The information contained in this document represents components of the legal health record. It is not the complete legal health record.[facility]
--- OUTSIDE RECORDS SUMMARY | 2025-04-07 10:14 | XMS_ITS | Data Portability ---
Author Organization [facility], [facility] Address [address] [place] [address] Care Team Providers Care Franchise Sales Manager Name Role Phone CHERYL EID Primary Care Provider [phone] Assessment No assessment recorded. Plan of Treatment Reminders Order Date Submit Date Provider Last Modified By Organization Details Last Modified Time Details Appointments None record ed. Lab None record ed. Referral None record ed. Procedures None record ed. Surgeries None record ed. Imaging XR, foot, 3 or more view - room 104, L foot 3v, WB 025 10/04/19 25 [facility], [address], [place], [address], 5 08:26:32 XR, foot, 3 or more view - room 105, L foot 3v, WB 025 08/09/19 25 [facility], [address], [address], [place], [address], 5 12:10:13 Medication Orders None record ed. Patient TargetsNo targets recorded. Patient InstructionsNo instructions recorded. Reason for Referral None Reported. Results Created Date Observation Date Name Description Value Unit Range Abnormal Flag Note LastModifiedBy Organization Detail LastModifiedTime 08/09/19 25 08/08/2024 XR, foot, 3 or more view http:/ [email or web address] ?Encry pted=s hAaTro YD8dLq bEUv6g %2BXZw aYqtaq 0bqfl% 2Fg9IQ a4ajBk vP9nXo QUaueC m3YtLR FvZlgJ JJ8mAn HZtai3 8n3723 AC0Kqb XuAWKa kKiQtr MwF INTERFACE [facility] [address] [address], [place], [address], 08/08/2024 13:58:53 08/09/19 25 08/08/2024 XR, foot, 3 or more view [email or web address] ?Encry pted=s hAaTro YD8dLq bEUv6g %2BXZw aYqtaq 0bqfl% 2Fg9IQ a4ajBk vP9nXo QUaueC m3YtLR FvZlgJ JJ8Phoenix HZtai3 0j7891 AC0Kqb XuAWKa kKiQtr MwF INTERFACE [facility] [address] [address], [place], [address], 08/08/2024 13:58:55 10/04/19 25 10/03/2024 XR, foot, 3 or more view [email or web address] ?Encry pted=s hAaTro YD8dLq bEUv6g %2BXZw aYqtaq 0bqfl% 2Fg9IQ a4ajBk vP9nXo QUaueC m3YtLR FvZl JJ8Phoenix HZtai3 0i4915 AC0Kla n%2BDU KegKiQ trMwF INTERFACE [facility] [address] [address], [place], [address], 10/03/2024 13:42:35 10/04/19 25 10/03/2024 XR, foot, 3 or more view [email or web address] ?Encry pted=s hAaTro YD8dLq bEUv6g %2BXZw aYqtaq 0bqfl% 2Fg9IQ a4ajBk vP9nXo QUaueC m3YtLR FvZl JJ8Phoenix HZtai3 7a8601 AC0Kla n%2BDU KegKiQ trMwF INTERFACE [facility] [address], [place], [address], 10/03/2024 13:42:36 Result Notes Documentation Provider Name and Address Organization Details Recorded Time Xr, Foot, 3 Or More View : [email or web address]? Encrypted=iwJdTqsME4dMtcG Uv6g%4TYZqfApobx0iatd%2Fg 9WUv8aeEbbF3hUyCNgmtFa5Od JVSbUvxULL2oCqQVfbr51s706 8ZV1ZlcPkYKPdyPxSjuZvM Not Available [facility] 08/08/2024 13:58: 54 Xr, Foot, 3 Or More View : [email or web address] Encrypted=csWfSxkHQ0oVkfB Uv6g%0FPIwtJoizw0clsi%2Fg 4SZl3pzMsqY6sLeHSufxIv7Nb OCHjFopWPZ5gIfERuzm26v465 9GJ9ChhNeXIFoeRoCpsHkM Not Available [facility] 08/08/2024 13:58: 56 Xr, Foot, 3 Or More View : [email or web address] Encrypted=bpImBvkPC4yAcwB Uv6g%3MOYkbVzkts9fyzx%2Fg 9UCd6taKacQ3cWnUEkvuUi7Yg VELyVueQGC5wLrQMtty17x742 0HY1Aaqq%2BDUKegKiQtrMwF Not Available [facility] 10/03/2024 13:4 2:35 Xr, Foot, 3 Or More View : [email or web address] Encrypted=asQuLchCL4rAogW Uv6g%9ICIfgMagaf7xque%2Fg 8GJo1fdYqkP7mVdTGuqfRg8Xn LAIiBsjQNH8fPzHVjye16c074 7JV0Avsd%2BDUKegKiQtrMwF Not Available [facility] 10/03/2024 13:4 2:36 Problems Name Problem SNOMED Code Status Onset Date Resolution Date Notes Provider Name and Address Organization Details Recorded Time No complaints 363293989 Active Status : 'I'; Not Available [facility] 4 09:24:33 Problem Notes None recorded. Procedures Surgical History Date Name Laterality Status Provider Name and Address Organization Details Recorded Time 3 Shoulder Surgery completed Luna caraballo [facility] 07/15/2024 13:58:34 2 Shoulder Surgery completed Industryjocelin landerscaraballo [facility] 07/15/2024 13:58:34 Imaging Results None recorded. Procedure Notes None recorded. Medical Equipment None Reported. Allergies Allergen ID Allergen Name Allergen Category Reaction Reaction Severity Criticality Documentation Date Start Date Code Code System Note Provider Name and Address Organization Details Recorded Time 60132 morphine sulfate medicatio n Not available Not available Not available 08/10/20232012 72934 RxNorm Aller gyRea ction : 'Skin React ion'; Not Available [facility] 4 11:53:15 Medications Name Sig Start Date Stop Date Status Note LastModified by Organization Details LastModified Time amoxicillin 500 mg capsule TAKE 1 CAPSULE BY MOUTH 3 TIMES A DAY UNTIL GONE active Not Available Not Available No t Available clindamycin HCl 300 mg capsule TAKE 1 CAPSULE BY MOUTH EVERY 8 HOURS UNTIL FINISHED active Not Available Not Available No t Available atorvastati n 10 mg tablet TAKE 1 TABLET BY MOUTH EVERYDAY AT BEDTIME active Not Available Not Available No t Available azithromyci n 250 mg tablet TAKE 2 TABLETS BY MOUTH TODAY, THEN TAKE 1 TABLET DAILY FOR 4 DAYS DIRECTED 07/15 completed Not Available Not Available Not Available methotrexat e 2.5 mg tablet Take 1 tablet every week by oral route. 07/15 completed Not Available Not Available Not Available atovaquone 250 mg-proguani l 100 mg tablet TAKE 1 TABLET BY MOUTH EVERY DAY 07/15 completed Not Available Not Available Not Available metoprolol succinate ER 100 mg tablet,exte nded release 24 hr TAKE 1 TABLET BY MOUTH EVERY DAY active Not Available Not Available No t Available methotrexat e sodium 2.5 mg tablet TAKE 8 TABLETS (20 MG TOTAL) BY MOUTH ONCE A WEEK. active Not Available Not Available No t Available erythromyci n 5 mg/gram (0.5 %) eye ointment APPLY 1 A SMALL AMOUNT INTO BOTH EYES THREE TIMES A DAY DIRECTED 07/15 completed Not Available Not Available Not Available pseudoephed rine-guaife nesin ER 80-700 mg tablet,exte nded release DO NOT DRIVE WHILE ON THIS MEDICATIO N 07/21 completed Statu s: 'Disc ontin ued'; Not Available Not Available Not Available triamterene 37.5 mg-hydrochl orothiazide 25 mg tablet TAKE 1 TABLET BY MOUTH EVERY DAY active Not Available Not Available No t Available omeprazole 20 mg capsule,del ayed release TAKE 1 CAPSULE BY MOUTH EVERY DAY active Not Available Not Available No t Available folic acid 1 mg tablet TAKE 1 TABLET BY MOUTH DAILY. EXCEPT THE DAY YOU TAKE YOUR METHOTREX ATE active Not Available Not Available No t Available fluocinolon e 0.01 % topical solution APPLY TO THE AFFECTED AREA(S) BY TOPICAL ROUTE 2 TIMES PER WEEK NEEDED 07/15 completed Not Available Not Available Not Available metformin ER 500 mg tablet,exte nded release 24 hr TAKE 1 TABLET BY MOUTH EVERY DAY WITH EVENING MEAL active Not Available Not Available No t Available amoxicillin 875 mg-potassiu m clavulanate 125 mg tablet TAKE 1 TABLET BY MOUTH TWICE A DAY 07/15 completed Not Available Not Available Not Available amoxicillin 500 mg-potassiu m clavulanate 125 mg tablet TAKE 1 TABLET BY MOUTH EVERY 12 HOURS FOR 7 DAYS 07/15 completed Not Available Not Available Not Available azithromyci n 500 mg tablet TAKE 1 TABLET BY MOUTH EVERY DAY FOR 3 DAYS 07/15 completed Not Available Not Available Not Available metronidazo le 1 % topical gel APPLY TO AFFECTED AREA TWICE A DAY active Not Available Not Available No t Available FreeStyle Lite Strips USE EVERY DAY active Not Available Not Available No t Available mesalamine 800 mg tablet,carmen yed release TAKE 3 TABLETS BY MOUTH EVERY DAY active Not Available Not Available No t Available mirabegron ER 50 mg tablet,exte nded release 24 hr TAKE 1 TABLET BY MOUTH EVERY DAY active Not Available Not Available No t Available Ozempic 1 mg/dose (4 mg/3 mL) subcutaneou s pen injector INJECT 1 MG SUBCUTANE OUSLY ONCE A WEEK active Not Available Not Available No t Available Ozempic 0.25 mg or 0.5 mg (2 mg/3 mL) subcutaneou s pen injector INJECT 0.5 MG SUBCUTANE OUSLY ONCE WEEKLY active Not Available Not Available No t Available Vitals Date Recorded Body height Body mass index (BMI) Body weight Provider Name and Address Organization Details Last Updated DateTime 08/08/2024 162.56 cm 31.4 kg/m2 48609.4 g Asuncion Borjas [facility] 08/08/2024 13:50:59 Social History Question Answer Notes LastModified by Organizat ion Details LastModified Time Tobacco Smoking Status [facility] 13:58:34 When Did You Quit Smoking? 16+yearssinc elastcigaret te [email or web address] Information not available 07/15/2024 What Is Your Relationship Status? Information not available 07/15/2024 How Many Years Have You Smoked Tobacco? 4 [email or web address] Information not available 07/15/2024 Sex: Unknown Functional Status Question Answer Note LastModified by Organizat ion Details LastModified Time How many times per week do you consume alcohol? Less than 1 time per week [email or web address] Information not available 07/15/2024 Do you use any illicit or recreational drugs? No [email or web address] Information not available 07/15/2024 Do you or have you ever used e-cigarettes or vape? Never used electronic cigarettes [email or web address] Information not available 07/15/2024 Mental Status None recorded. Family History Nothing Reported. Medical History Condition Response Diabetes Y Gastrointestinal Disease Y Acid Reflux (GERD) Y Arthritis Y Hypertension Y Gynecological HistoryNo gynecological history recorded. Obstetrics History GPAL:G 0 P 0 0 0 0 Past Encounters Encounter ID Performer Location Encounter Start Date Encounter Closed Date Diagnosis/Indication Diagnosis SNOMED-CT Code Diagnosis ICD10 Code Diagnosis IMO Codes Diagnosis Note [id number] NATALI CARPIO PA-C [facility] [address] [place] [address] 07/15/2024 13:45:48 07/22/2024 13:05:53 Closed fracture of fifth metatarsal bone 63903932 S92.355A [id number] NATALI CARPIO PA[facility]C [facility] [address] [place] [address] 08/08/2024 13:33:40 08/18/2024 12:10:13 Closed fracture of fifth metatarsal bone 04013634 S92.355D [id number] NATALI CARPIO PA[facility]C [facility] [address] [place] [address] 10/03/2024 13:25:19 10/10/2024 08:26:32 Closed fracture of fifth metatarsal bone 02071356 S92.355D [id number] Health Concerns Section Related Observation LastModified by Organization Detai ls LastModified Time None Recorded Concern Status LastModified by Organization Details LastModified Time None Recorded Advance Directives Directive None Recorded Payers Insurance Date Sequence Insurance Name Policy Number Policy Dietrich Covered Member ID Dietrich Member ID Guarantor Name 10/10/2024 1 [facility] (MEDICARE REPLACEMENT/ ADVANTAGE - PPO) [id number] Toshia Hall [id number] Toshia Paul Isabel Notes Date Note Type Note Provider Name and Address Organization Details Recorded Time text/html I am seeing this patient under the supervision of Dr. Walsh, who was available but who did not see the patient. Chief Complaint: Left fifth metatarsal fracture HPI: Patient is a pleasant 73-year-old female accompanied in office today by her she states on 07/12/2024 she got up from a seated position on a very numb right lower extremity and tried running to the bathroom as she had to go urgently. She states she rolled over the top of the foot and heard a very loud audible pop. She was unable to get an to be seen at any urgent care facility so her primary care ordered an x-ray. She was diagnosed with a fracture referred to our office. She has been in a postoperative shoe weightbearing as tolerated taking ibuprofen and Tylenol. She does endorse a history of Crohn's disease treated with methotrexate causing enteropathic osteoarthritis. PFMSH, Meds and ROS reviewed, updated and signed by me, and is located in the patient's chart.PHYSICAL EXAMINATION: The patient is well appearing and in no apparent distress. Alert and oriented x 3. On seated examination patient has observable edema and ecchymosis along the dorsum of the left foot she is tender to palpation along the base of the metatarsal denies tenderness palpation elsewhere throughout the foot or ankle. Active range of motion intact digitally. Ankle range of motion limited to dorsiflexion neutral plantarflexion inversion eversion within normal limit with eversion activity causing pain.Sensory exam- reports sensation intact to light touch SP/DP/S/S/T distributions Palpable DP/PT pulses, foot warm and well perfused, appropriate capillary refill Calf is soft, supple, non-tender RADIOLOGY: X-rays were ordered, obtained at [facility], and reviewed today in our office. 3 views nonweightbearing foot indicative of left nondisplaced fracture of the base of the fifth metatarsal. IMPRESSION: nondisplaced fracture of the base of the fifth metatarsal. PLAN: Discussed the findings and situation with the patient today. I recommend continued conservative treatment patient was given a prescription for a short cam boot discussed weightbearing as tolerated she is concerned about the pain she is having when weightbearing we did discuss a knee scooter would be an option as the patient is asked about this she was given a prescription for 1 in office today. We did discuss however she can do heel weightbearing with a walker as well as needed. Will plan to follow-up in 4 weeks for repeat imaging patient expressed understanding agreement plan all her questions asked and answered. She was encouraged to continue using ibuprofen Tylenol and icing as needed. The patient is ambulatory, but has weakness and/or instability of their extremity which requires stabilization from this semi-rigid/rigid orthosis to improve their function. Verbal and written instructions for the use and application of this item were given. Patient was instructed that should the brace result in increased pain, decreased sensation, increased swelling or an overall worsening of their medical condition, to please contact our office immediately. [employer] speech recognition bulker software was used to create portions of this document. An attempt at proofreading has been made to minimize errors. Please call for corrections. NATALI CARPIO PA-C [address], [place], [address], [facility] 07/15/2024 14:36:39 5 text/html I am seeing this patient under the supervision of Dr. Singh, who was available but who did not see the patient. Chief Complaint: Left fifth metatarsal fracture HPI: Patient is a pleasant 73-year-old female accompanied in office today in follow-up for left fifth metatarsal fracture that occurred on 07/12/2024. Patient presents today stating she is overall doing well she is ambulating in the short cam boot. States the pain is about a 3 out of 10 today denies any interval trauma fevers chills paresthesias. PFMSH, Meds and ROS reviewed, updated and signed by me, and is located in the patient's chart.PHYSICAL EXAMINATION: The patient is well appearing and in no apparent distress. Alert and oriented x 3. On seated examination patient has no observable edema and ecchymosis along the dorsum of the left foot she is tender to palpation along the base of the metatarsal denies tenderness palpation elsewhere throughout the foot or ankle. Active range of motion intact digitally. Ankle range of motion limited to dorsiflexion neutral plantarflexion inversion eversion within normal limit with eversion activity causing pain.Sensory exam- reports sensation intact to light touch SP/DP/S/S/T distributionsPalpable DP/PT pulses, foot warm and well perfused, appropriate capillary refillCalf is soft, supple, non-tender RADIOLOGY: X-rays were ordered, obtained and independently reviewed in office today 3 views weightbearing left foot indicative of interval healing of a nondisplaced fracture of the base of the fifth metatarsal no other acute findings noted. IMPRESSION: nondisplaced fracture of the base of the fifth metatarsal. PLAN: Discussed the findings and situation with the patient today. At this time I would recommend continued conservative treatment continuing in her short cam boot for another 2 weeks and as long as her pain subsides when ambulating in the boot she can transition in 2 weeks into a regular supportive shoe wear with carbon fiber insert which was prescribed to her in office today. Patient expressed understanding of the plan will follow-up in 4 weeks. The patient is ambulatory, but has weakness and/or instability of their extremity which requires stabilization from this semi-rigid/rigid orthosis to improve their function. Verbal and written instructions for the use and application of this item were given. Patient was instructed that should the brace result in increased pain, decreased sensation, increased swelling or an overall worsening of their medical condition, to please contact our office immediately. [employer] [facility] speech recognition bulker software was used to create portions of this document. An attempt at proofreading has been made to minimize errors. Please call for corrections. NATALI CARPIO PA-C [address], [place], [address], [facility] 08/08/2024 14:18:48 5 text/html I am seeing this patient under the supervision of Dr. Singh, who was available but who did not see the patient. Chief Complaint: Left fifth metatarsal fracture HPI: Patient is a pleasant 73-year-old female accompanied in office today in follow-up for left fifth metatarsal fracture that occurred on 07/12/2024. Patient presents today stating she still has some intermittent pain when walking along the base of the fifth metatarsal however overall feels much better. She is not able to tolerate the carbon fiber Ensure and has been wearing good supportive sneakers at this time. Denies any interval trauma. PFMSH, Meds and ROS reviewed, updated and signed by me, and is located in the patient's chart.PHYSICAL EXAMINATION: The patient is well appearing and in no apparent distress. Alert and oriented x 3. On seated examination patient has no observable edema and ecchymosis along the dorsum of the left foot she is minimally tender to palpation along the base of the metatarsal denies tenderness palpation elsewhere throughout the foot or ankle. Active range of motion intact digitally. Ankle range of motion limited to dorsiflexion neutral plantarflexion inversion eversion within normal limit with eversion activity causing pain. Manual muscle test in all 4 planes of motions 5/5.Sensory exam- reports sensation intact to light touch SP/DP/S/S/T distributionsPalpable DP/PT pulses, foot warm and well perfused, appropriate capillary refillCalf is soft, supple, non-tender RADIOLOGY: X-rays were ordered, obtained and independently reviewed in office today 3 views weightbearing left foot indicative of healed fracture of the base of the fifth metatarsal. IMPRESSION: nondisplaced fracture of the base of the fifth metatarsal, healed PLAN: Discussed the findings and situation with the patient today. At this time patient is overall doing well fracture site appears healed on imaging. I would recommend no formal follow-up at this time. She can continue with daily activities as tolerated and increase over time. Patient should call with any question concerns. All her questions asked and answered. [employer] speech recognition bulker software was used to create portions of this document. An attempt at proofreading has been made to minimize errors. Please call for corrections. NATALI CARPIO PA-C [address], [place], [address], [facility] 10/03/2024 13:48:23 OBGyn Episode No OBEpisode recorded.
== END 2025-04-07 09:52 | disposition home or self-care (01) ==
LOC: HO.PMC 09:16
PROVIDERS: PCP Internal Medicine; Visit Provider Registered Nurse Emergency
DX: M53.3 Sacrococcygeal disorders, not elsewhere classified (principal); M70.62 Trochanteric bursitis, left hip
CPT/HCPCS: 99213; G2211

== ENCOUNTER → 2025-04-07 09:15 | Outpatient (BNVA) | payer MEDICARE, SELFPAY | PROVIDERS: PCP Internal Medicine; Visit Provider Registered Nurse Emergency | DX: M53.3 Sacrococcygeal disorders, not elsewhere classified (principal); M70.62 Trochanteric bursitis, left hip | CPT/HCPCS: 99212 ==

== ENCOUNTER 2025-04-21 10:35 | Outpatient (AMB) | payer MEDICARE, SELFPAY ==
[2025-04-21 10:50] VITALS: BP 136/65; PULSE 74; RESP 16; O2SAT 95; BMI 30.2
--- NOTE | 2025-04-21 10:50 | MHC.OFFVIS ---
Vital Signs 04/21/25 10:50 Height 5 ft 4 in Weight 176 lb BMI 30.2 BP 136/65 Blood Pressure Location Rt brachial Position Sitting Respiration 16 Pulse 74 Pulse Source Pulse Oximeter Pulse Oximetry (%) 95 Oxygen Delivery Method Room Air Intake Visit Reasons: LEFT GTB INJECTION [employer] Blocker Required: No Accompanied by: Self / Same As Patient Allergies morphine Allergy (Unknown, Verified 04/21/25 10:50) Itching HPI Comments Details: Patient presents to the office for planned steroid injection to left GTB. [facility] Medical History (Updated 04/10/25 @ 08:49 by Rona Mireles APRN, CNP) Migraine Enteropathic arthritis GERD (gastroesophageal reflux disease) Hypertension Diabetes mellitus type 2, noninsulin dependent Colon polyps Colitis Social History (Updated 11/27/23 @ 10:57 by CAPO Chu) Patient Tobacco Use Status: Never used Tobacco Review of Systems Const All systems reviewed & are unremarkable except as noted in HPI and below Physical Exam Vital Signs: Last Vital Signs Pulse 74 04/21/25 10:50 Resp 16 04/21/25 10:50 BP 136/65 04/21/25 10:50 Pulse Ox 95 04/21/25 10:50 Oxygen Delivery Method Room Air 04/21/25 10:50 BMI result Body Mass Index 30.2 Office Procedures Therapeutic Injection Therapeutic Injection Details: Left Trochanteric Bursa Steroid Injection: After obtaining informed consent the patient exposed her left hip area. Time-out was obtained delineating correct site and side of the procedure. The area of trochanteric bursa on the left hip was prepped with ChloraPrep. Sterilely obtained Bupivacaine 0.5% 6cc mixed with Triamcinolone Acetonide 40mg was injected into the most pain painful point just above the palpated trochanter. Upon completion of the injection needle was withdrawn sterile Band-Aid was applied. The patient tolerated procedure well. No immediate side effects were noted. [id number] Point Injection 1 or 2 sites All charges added?: Procedure code (CPT) selection complete Office Meds triamcinolone acetonide 40 mg/mL suspension for injection Performing Provider: Rona Mireles APRN, CNP Performing Location: [facility] Administered by: Rona Mireles APRN, CNP on 04/21/25 12:35 Dose Route Admin Location Dispensed Lot Number Expiration Date [employer] 40 mg Infiltration 1 mL [id number] 11/06/26 [address]-7 [employer] Total Dispensed Waste 1 mL 0 % bupivacaine (PF) 0.25 % (2.5 mg/mL) injection solution Performing Provider: Rona Mireles APRN, CNP Performing Location: [facility] Administered by: Rona Mireles APRN, CNP on 04/21/25 12:35 Dose Route Admin Location Dispensed Lot Number Expiration Date [facility] [employer] 6 mL Infiltration 10 mL [id number] 10/06/25 7675-5588-05 [employer] Total Dispensed Waste 10 mL 40 % Assessment & Plan Assessment & Plan (1) Greater trochanteric bursitis of left hip: Code(s): M70.62 - Trochanteric bursitis, left hip Category: Medical (2) Sacroiliac joint dysfunction of left side: Code(s): M53.3 - Sacrococcygeal disorders, not elsewhere classified Category: Medical Plan Left GTB injection performed as per above. Patient tolerated well. The patient was previosly presented with several management options for her chronic pain, specifically targeting the sacroiliac joint pain. One option discussed was a surgical fusion procedure to stabilize the joint, which would prevent movement and potentially alleviate pain. Alternatively, a Sprint temporary nerve stimulator was proposed, which involves placing a small wire near the sacroiliac joint to disrupt pain signals. This procedure is minimally invasive and does not require anesthesia, offering pain relief for 9 months up to a year. The patient was also informed about the possibility of repeating the injection if needed. Patient will call the office when she is ready to proceed with additional interventional management of her SIJ pain. Patient was informed and verbally consented to the use of an ambient scribe for clinic note documentation during this visit. Orders: Orders AMB Trigger Point Injection Today M70.62 - Trochanteric bursitis, left hip Coding Level of Care Code Procedure Only Diagnoses Greater trochanteric bursitis of left hip M70.62 Sacroiliac joint dysfunction of left side M53.3 CPT Codes Therapeutic Injection - Ther Injection 1: [id number] Point Injection 1 or 2 sites ([id number])
== END 2025-04-21 11:31 | disposition home or self-care (01) ==
LOC: HO.PMC 10:36
PROVIDERS: PCP Internal Medicine; Visit Provider Registered Nurse Emergency
DX: M70.62 Trochanteric bursitis, left hip (principal); M53.3 Sacrococcygeal disorders, not elsewhere classified
CPT/HCPCS: 20552

== ENCOUNTER → 2025-04-21 10:35 | Outpatient (BNVA) | payer MEDICARE, SELFPAY | PROVIDERS: PCP Internal Medicine; Visit Provider Registered Nurse Emergency | DX: M70.62 Trochanteric bursitis, left hip (principal); M53.3 Sacrococcygeal disorders, not elsewhere classified | CPT/HCPCS: 20552; 20610; J0665; J3300 ==